=== PATIENT | male | born 1940 | race Two or more races ===

== ENCOUNTER 2018-01-10 20:57 | Inpatient (IN) | payer MEDICARE, OTHER ==
[~2018-01-10] VITALS: Ht 172.7 cm; Wt 72.1 kg
[2018-01-10 21:30] VITALS: BP 128/66
[2018-01-10] MEDS ORDERED: DOCU100C36 PO (22:01)
[2018-01-10] MEDS ORDERED: TRAZ-144 PO (22:01)
[2018-01-10] MEDS ORDERED: HYDR-3326 PO ×2 (22:01)
[2018-01-10] MEDS ORDERED: AMLO10TA2 PO (22:01)
[2018-01-10] MEDS ORDERED: CITA20TA19 PO (22:01)
[2018-01-10] MEDS ORDERED: ALBU8.5H8 INH (22:01)
[2018-01-10] MEDS ORDERED: AMIO200T2 PO (22:01)
[2018-01-10] MEDS ORDERED: FURO20TA4 PO (22:01)
[2018-01-10] MEDS ORDERED: ALBU2.5V38 NEB (22:01)
[2018-01-10] MEDS ORDERED: DOXA2TAB2 PO (22:01)
[2018-01-10] MEDS ORDERED: HYDR-4076 PO (22:01)
[2018-01-10] MEDS ORDERED: ASPI-1169 PO (22:01)
[2018-01-10] MEDS ORDERED: POLY17PO4 PO (22:01)
[2018-01-10] MEDS ORDERED: ONDA4TAB5 PO (22:01)
[2018-01-10] MEDS ORDERED: TIOT18CA3 INH (22:01)
[2018-01-10] MEDS ORDERED: TAMS0.4C34 PO (22:01)
[2018-01-10] MEDS ORDERED: METO50TA16 PO (22:01)
[2018-01-10] MEDS ORDERED: ZOLPIDEM 5 MG TABLET PO PRN (22:15)
[2018-01-10] MEDS ORDERED: ONDANSETRON 4 MG/2 ML VIAL IV PRN (22:15)
[2018-01-10] MEDS ORDERED: hydrALAZINE HCL 25 MG TABLET PO SCH (22:30)
[2018-01-10] MEDS ORDERED: ALBUTEROL SULFATE 2.5 MG/3 ML NEBU NEB PRN (22:30)
[2018-01-10] MEDS ORDERED: IPRATROPIUM BROMIDE 0.5 MG/2.5 ML NEBU NEB PRN (22:30)
[2018-01-10] MEDS ORDERED: ALBUTEROL SULFATE 8 GM HFA.AER.AD INH PRN (22:30)
[2018-01-10] MEDS: PIPERACILLIN SODIUM/TAZOBACTAM 4.5 G in IV DEXTROSE 5% 50 ML IV SCH (22:55)
[2018-01-10] MEDS: IV 1/2NS 1000 ML 1,000 ML IV PRN (22:56)
[2018-01-11] VITALS (7 sets, daily range): BP systolic 132–177; BP diastolic 56–84
[2018-01-11 00:22] LABS: CARBON DIOXIDE 26 mmol/L (21-32); CHLORIDE 102 mmol/L (98-107); CREATININE 2.4 mg/dL (0.6-1.3); GLUCOSE 120 mg/dL (74-106); UREA NITROGEN, BLOOD 22 mg/dL (7-18)
[2018-01-11] MEDS: MORPHINE SULFATE 4 MG/1 ML DISP.SYRIN IV PRN (02:15)
[2018-01-11] MEDS: PIPERACILLIN SODIUM/TAZOBACTAM 4.5 G in IV DEXTROSE 5% 50 ML IV SCH (05:58)
[2018-01-11 06:06] LABS: BASOPHILS # (AUTO) 0.2 K/uL (0.0-8.0); BASOPHILS % (AUTO) 0.8 % (0.0-2.0); EOSINOPHILS # (AUTO) 0.4 K/uL (0.0-0.7); EOSINOPHILS % (AUTO) 2.2 % (0.0-7.0); HEMATOCRIT 37.3 % (36.7-47.1); HEMOGLOBIN 12.1 g/dL (12.5-16.3); LYMPHOCYTES % (AUTO) 10.3 % (20.5-51.5); MEAN CORPUSCULAR HEMOGLOBIN 25.4 uug (23.8-33.4); MEAN CORPUSCULAR HGB CONC 32 g/dL (32.5-36.3); MEAN CORPUSCULAR VOLUME 78.4 fL (73.0-96.2); MONOCYTES % (AUTO) 10.2 % (0.0-11.0); NEUTROPHILS # (AUTO) 15.3 K/uL (1.8-8.9); NEUTROPHILS % (AUTO) 76.5 % (38.5-71.5); PLATELET COUNT (AUTO) 324 K/uL (152-348); RED BLOOD CELL COUNT(AUTO) 4.76 MIL/uL (4.06-5.63); WHITE BLOOD COUNT (AUTO) 19.9 K/uL (3.6-10.2)
[2018-01-11 06:40] LABS: ALANINE AMINOTRANSFERASE 46 U/L (16-63); ALKALINE PHOSPHATASE 314 U/L (50-136); ASPARTATE AMINOTRANSFERASE 32 U/L (15-37); BILIRUBIN,TOTAL 0.4 mg/dL (0.2-1.0); CARBON DIOXIDE 26 mmol/L (21-32); CHLORIDE 101 mmol/L (98-107); CHOLESTEROL 134 mg/dL (<200); CREATININE 2.4 mg/dL (0.6-1.3); GLUCOSE 111 mg/dL (74-106); HDL CHOLESTEROL 37 mg/dL (40-60); MAGNESIUM 1.8 mg/dL (1.8-2.4); PHOSPHOROUS 4.2 mg/dL (2.5-4.9); POTASSIUM 3.7 mmol/L (3.5-5.1); TOTAL PROTEIN, SERUM 6.1 g/dL (6.4-8.2); TRIGLYCERIDES 110 MG/DL (30-150); UREA NITROGEN, BLOOD 22 mg/dL (7-18)
[2018-01-11] MEDS ORDERED: hydrALAZINE HCL 25 MG TABLET PO PRN (07:15)
[2018-01-11] MEDS ORDERED: ZOLPIDEM 5 MG TABLET PO PRN (07:15)
[2018-01-11] MEDS ORDERED: ONDANSETRON 4 MG/2 ML VIAL IV PRN (07:15)
[2018-01-11] MEDS ORDERED: LIDOCAINE HCL 1% 20 ML VIAL IJ ONE (08:15)
[2018-01-11] MEDS: DOCUSATE SODIUM 100 MG CAPSULE PO SCH ×3 (09:00→16:28)
[2018-01-11] MEDS ORDERED: CITALOPRAM 20 MG TABLET PO SCH ×2 (09:00)
[2018-01-11] MEDS: ASPIRIN 81 MG TAB.CHEW PO SCH ×2 (09:00→16:00)
[2018-01-11 09:59] LABS: CARBON DIOXIDE 26 mmol/L (21-32); CHLORIDE 102 mmol/L (98-107); CREATININE 2.4 mg/dL (0.6-1.3); GLUCOSE 112 mg/dL (74-106); POTASSIUM 3.9 mmol/L (3.5-5.1); UREA NITROGEN, BLOOD 24 mg/dL (7-18)
[2018-01-11] MEDS: AMLODIPINE 10 MG TABLET PO SCH ×2 (11:00→11:14)
[2018-01-11] MEDS: METOPROLOL TARTRATE 50 MG TABLET PO SCH ×3 (11:00→19:44)
[2018-01-11] MEDS ORDERED: DEXTROSE 50% 50 ML DISP.SYRIN IV PRN (11:00)
[2018-01-11] MEDS: AMIODARONE HCL 200 MG TABLET PO SCH ×2 (11:00→11:14)
[2018-01-11] MEDS: BLOOD SUGAR DIAGNOSTIC 1 EACH STRIP VI SCH ×3 (12:00→22:06)
[2018-01-11] MEDS: PIPERACILLIN/TAZOBACTAM/D5W 2.25 G in PREMIXED 1 EACH IV SCH ×3 (12:00→23:50)
[2018-01-11] MEDS: IV 1/2NS 1000 ML 1,000 ML IV PRN (12:04)
[2018-01-11 12:18] LABS: THYROID STIMULATING HORMONE 10.099 mIU/mL (0.358-3.740)
[2018-01-11] MEDS: INSULIN REGULAR, HUMAN 300 UNIT/3 ML VIAL SQ PRN (16:45)
[2018-01-11] MEDS: Z GUARD REMEDY PASTE 57 GM TUBE TOP PRN (16:45)
[2018-01-11] MEDS: ACETAMINOPHEN 325 MG TABLET PO PRN (19:44)
[2018-01-11] MEDS: DOXAZOSIN 2 MG TABLET PO SCH (19:45)
[2018-01-11] MEDS: TAMSULOSIN HCL 0.4 MG CAP.SR.24H PO SCH (19:45)
[2018-01-11] MEDS ORDERED: TRAZODONE 50 MG TABLET PO SCH ×2 (21:00)
[2018-01-11] MEDS: IPRATROPIUM BROMIDE 0.5 MG/2.5 ML NEBU NEB PRN (22:19)
[2018-01-11] MEDS: ALBUTEROL SULFATE 2.5 MG/3 ML NEBU NEB PRN (22:20)
[2018-01-12] MEDS: IV 1/2NS 1000 ML 1,000 ML IV PRN ×2 (02:08→19:48)
[2018-01-12 04:06] VITALS: BP 96/66
[2018-01-12] MEDS: MORPHINE SULFATE 4 MG/1 ML DISP.SYRIN IV PRN (04:38)
[2018-01-12] MEDS: LEVOTHYROXINE SODIUM 25 MCG TABLET PO SCH (04:39)
[2018-01-12] MEDS: PIPERACILLIN/TAZOBACTAM/D5W 2.25 G in PREMIXED 1 EACH IV SCH ×3 (05:11→18:13)
[2018-01-12] MEDS: BLOOD SUGAR DIAGNOSTIC 1 EACH STRIP VI SCH ×4 (06:02→20:29)
[2018-01-12] MEDS ORDERED: IOHEXOL 300MG/ML 50 ML VIAL ONE (06:23)
[2018-01-12 07:01] LABS: BASOPHILS # (AUTO) 0.1 K/uL (0.0-8.0); BASOPHILS % (AUTO) 0.7 % (0.0-2.0); EOSINOPHILS # (AUTO) 0.6 K/uL (0.0-0.7); HEMOGLOBIN 11.4 g/dL (12.5-16.3); LYMPHOCYTES # (AUTO) 1.9 K/uL (20.0-40.0); LYMPHOCYTES % (AUTO) 12.1 % (20.5-51.5); MEAN CORPUSCULAR HEMOGLOBIN 25.6 uug (23.8-33.4); MEAN CORPUSCULAR HGB CONC 33 g/dL (32.5-36.3); MEAN CORPUSCULAR VOLUME 78.4 fL (73.0-96.2); MONOCYTES # (AUTO) 1.5 K/uL (2.0-10.0); MONOCYTES % (AUTO) 9.2 % (0.0-11.0); NEUTROPHILS # (AUTO) 11.6 K/uL (1.8-8.9); PLATELET COUNT (AUTO) 286 K/uL (152-348); RED BLOOD CELL COUNT(AUTO) 4.46 MIL/uL (4.06-5.63); WHITE BLOOD COUNT (AUTO) 15.7 K/uL (3.6-10.2)
[2018-01-12] MEDS ORDERED: FENTANYL CITRATE 100 MCG/2 ML AMPUL ONE (07:02)
[2018-01-12] MEDS ORDERED: ETOMIDATE 20 MG/10 ML VIAL MC ONE (07:38)
[2018-01-12] MEDS ORDERED: PROPOFOL 200 MG/20 ML BOTTLE IV ONE (07:38)
[2018-01-12] MEDS ORDERED: LIDOCAINE HCL 1% 20 ML VIAL MC ONE (07:38)
[2018-01-12] MEDS ORDERED: ONDANSETRON 4 MG/2 ML VIAL IV ONE (07:38)
[2018-01-12] MEDS ORDERED: ALBUTEROL SULFATE 2.5 MG/3 ML NEBU ONE (08:37)
[2018-01-12] MEDS ORDERED: IPRATROPIUM BROMIDE 0.5 MG/2.5 ML NEBU ONE (08:37)
[2018-01-12] MEDS: ALBUTEROL SULFATE 2.5 MG/3 ML NEBU NEB PRN ×2 (08:40→19:23)
[2018-01-12] MEDS: IPRATROPIUM BROMIDE 0.5 MG/2.5 ML NEBU NEB PRN ×2 (08:40→19:22)
[2018-01-12 08:58] LABS: ALANINE AMINOTRANSFERASE 39 U/L (16-63); ALKALINE PHOSPHATASE 300 U/L (50-136); ASPARTATE AMINOTRANSFERASE 32 U/L (15-37); BILIRUBIN,TOTAL 0.5 mg/dL (0.2-1.0); CARBON DIOXIDE 25 mmol/L (21-32); CHLORIDE 101 mmol/L (98-107); CREATININE 2.5 mg/dL (0.6-1.3); GLUCOSE 103 mg/dL (74-106); MAGNESIUM 1.7 mg/dL (1.8-2.4); PHOSPHOROUS 3.5 mg/dL (2.5-4.9); POTASSIUM 3.9 mmol/L (3.5-5.1); TOTAL PROTEIN, SERUM 5.7 g/dL (6.4-8.2); UREA NITROGEN, BLOOD 23 mg/dL (7-18)
[2018-01-12] MEDS: DOCUSATE SODIUM 100 MG CAPSULE PO SCH ×2 (09:26→17:56)
[2018-01-12] MEDS: ASPIRIN 81 MG TAB.CHEW PO SCH (09:26)
[2018-01-12] MEDS: AMIODARONE HCL 200 MG TABLET PO SCH (09:27)
[2018-01-12] MEDS: AMLODIPINE 10 MG TABLET PO SCH (09:27)
[2018-01-12] MEDS: METOPROLOL TARTRATE 50 MG TABLET PO SCH ×2 (09:28→20:22)
[2018-01-12] MEDS ORDERED: MAGNESIUM SULFATE/D5W 100 ML IV SCH (10:15)
[2018-01-12 11:36] VITALS: BP 120/60
[2018-01-12] MEDS: INSULIN REGULAR, HUMAN 300 UNIT/3 ML VIAL SQ PRN ×2 (12:04→20:33)
[2018-01-12 15:42] VITALS: BP 110/58
[2018-01-12 20:00] VITALS: BP 153/70
[2018-01-12] MEDS: ACETAMINOPHEN 325 MG TABLET PO PRN (20:21)
[2018-01-12] MEDS: DOXAZOSIN 2 MG TABLET PO SCH (20:22)
[2018-01-12] MEDS: TAMSULOSIN HCL 0.4 MG CAP.SR.24H PO SCH (20:22)
[2018-01-12] MEDS: Z GUARD REMEDY PASTE 57 GM TUBE TOP PRN (20:22)
[2018-01-13] MEDS: PIPERACILLIN/TAZOBACTAM/D5W 2.25 G in PREMIXED 1 EACH IV SCH ×5 (00:20→23:55)
[2018-01-13 05:03] VITALS: BP 117/69
[2018-01-13] MEDS: LEVOTHYROXINE SODIUM 25 MCG TABLET PO SCH (05:10)
[2018-01-13] MEDS: BLOOD SUGAR DIAGNOSTIC 1 EACH STRIP VI SCH ×4 (05:29→20:42)
[2018-01-13] MEDS: ALBUTEROL SULFATE 2.5 MG/3 ML NEBU NEB PRN ×2 (07:41→14:04)
[2018-01-13] MEDS: IPRATROPIUM BROMIDE 0.5 MG/2.5 ML NEBU NEB PRN ×2 (07:41→14:04)
[2018-01-13 10:14] VITALS: BP 113/68
[2018-01-13] MEDS: AMLODIPINE 10 MG TABLET PO SCH (10:18)
[2018-01-13] MEDS: DOCUSATE SODIUM 100 MG CAPSULE PO SCH ×2 (10:19→17:11)
[2018-01-13] MEDS: METOPROLOL TARTRATE 50 MG TABLET PO SCH ×2 (10:19→20:36)
[2018-01-13] MEDS: AMIODARONE HCL 200 MG TABLET PO SCH (10:19)
[2018-01-13] MEDS: ASPIRIN 81 MG TAB.CHEW PO SCH (10:19)
[2018-01-13] MEDS: IV 1/2NS 1000 ML 1,000 ML IV PRN ×2 (10:23→23:57)
[2018-01-13 11:17] VITALS: BP 127/59
[2018-01-13] MEDS: INSULIN REGULAR, HUMAN 300 UNIT/3 ML VIAL SQ PRN (12:04)
[2018-01-13 15:10] VITALS: BP 115/49
[2018-01-13 20:04] VITALS: BP 129/58
[2018-01-13] MEDS: DOXAZOSIN 2 MG TABLET PO SCH (20:36)
[2018-01-13] MEDS: TAMSULOSIN HCL 0.4 MG CAP.SR.24H PO SCH (20:38)
[2018-01-14] MEDS: IPRATROPIUM BROMIDE 0.5 MG/2.5 ML NEBU NEB SCH ×7 (00:03→23:13)
[2018-01-14] MEDS: ALBUTEROL SULFATE 2.5 MG/3 ML NEBU NEB SCH ×7 (00:03→23:13)
[2018-01-14 04:00] VITALS: BP 125/57
[2018-01-14] MEDS: PIPERACILLIN/TAZOBACTAM/D5W 2.25 G in PREMIXED 1 EACH IV SCH (05:19)
[2018-01-14 06:36] LABS: BASOPHILS # (AUTO) 0.1 K/uL (0.0-8.0); BASOPHILS % (AUTO) 0.5 % (0.0-2.0); EOSINOPHILS # (AUTO) 0.3 K/uL (0.0-0.7); EOSINOPHILS % (AUTO) 2.5 % (0.0-7.0); HEMATOCRIT 35.4 % (36.7-47.1); HEMOGLOBIN 11.7 g/dL (12.5-16.3); LYMPHOCYTES # (AUTO) 1.5 K/uL (20.0-40.0); LYMPHOCYTES % (AUTO) 11.1 % (20.5-51.5); MEAN CORPUSCULAR HEMOGLOBIN 25.7 uug (23.8-33.4); MEAN CORPUSCULAR HGB CONC 33 g/dL (32.5-36.3); MEAN CORPUSCULAR VOLUME 78.1 fL (73.0-96.2); MONOCYTES # (AUTO) 1.3 K/uL (2.0-10.0); MONOCYTES % (AUTO) 9.5 % (0.0-11.0); NEUTROPHILS # (AUTO) 10.5 K/uL (1.8-8.9); NEUTROPHILS % (AUTO) 76.4 % (38.5-71.5); PLATELET COUNT (AUTO) 314 K/uL (152-348); RED BLOOD CELL COUNT(AUTO) 4.53 MIL/uL (4.06-5.63); WHITE BLOOD COUNT (AUTO) 13.7 K/uL (3.6-10.2)
[2018-01-14] MEDS: LEVOTHYROXINE SODIUM 25 MCG TABLET PO SCH (06:36)
[2018-01-14] MEDS: BLOOD SUGAR DIAGNOSTIC 1 EACH STRIP VI SCH ×4 (06:39→21:11)
[2018-01-14 06:51] LABS: ALANINE AMINOTRANSFERASE 62 U/L (16-63); ALKALINE PHOSPHATASE 459 U/L (50-136); ASPARTATE AMINOTRANSFERASE 56 U/L (15-37); BILIRUBIN,TOTAL 0.5 mg/dL (0.2-1.0); CARBON DIOXIDE 27 mmol/L (21-32); CHLORIDE 101 mmol/L (98-107); CREATININE 1.5 mg/dL (0.6-1.3); GLUCOSE 113 mg/dL (74-106); MAGNESIUM 1.6 mg/dL (1.8-2.4); PHOSPHOROUS 3.1 mg/dL (2.5-4.9); POTASSIUM 3.4 mmol/L (3.5-5.1); TOTAL PROTEIN, SERUM 5.7 g/dL (6.4-8.2); UREA NITROGEN, BLOOD 17 mg/dL (7-18)
[2018-01-14] MEDS: DOCUSATE SODIUM 100 MG CAPSULE PO SCH ×2 (08:33→17:17)
[2018-01-14] MEDS: AMLODIPINE 10 MG TABLET PO SCH (08:33)
[2018-01-14] MEDS: ASPIRIN 81 MG TAB.CHEW PO SCH (08:33)
[2018-01-14] MEDS: METOPROLOL TARTRATE 50 MG TABLET PO SCH ×2 (08:33→21:10)
[2018-01-14] MEDS: AMIODARONE HCL 200 MG TABLET PO SCH (08:33)
[2018-01-14 08:34] VITALS: BP 128/74
[2018-01-14 10:59] VITALS: BP 125/76
[2018-01-14] MEDS: PIPERACILLIN/TAZOBACTAM/D5W 3.375 G in PREMIXED 1 EACH IV SCH ×2 (13:07→21:14)
[2018-01-14] MEDS ORDERED: POTASSIUM CHLORIDE 10 MEQ TAB.PRT.SR PO ONE (14:45)
[2018-01-14] MEDS: IV 1/2NS 1000 ML 1,000 ML IV PRN (14:45)
[2018-01-14 15:08] VITALS: BP 142/62
[2018-01-14] MEDS ORDERED: MAGNESIUM SULFATE/D5W 100 ML IV SCH (15:15)
[2018-01-14] MEDS: INSULIN REGULAR, HUMAN 300 UNIT/3 ML VIAL SQ PRN (17:14)
[2018-01-14 20:00] VITALS: BP 120/57
[2018-01-14] MEDS: TAMSULOSIN HCL 0.4 MG CAP.SR.24H PO SCH (21:09)
[2018-01-14] MEDS: ACETAMINOPHEN 325 MG TABLET PO PRN (21:09)
[2018-01-14] MEDS: DOXAZOSIN 2 MG TABLET PO SCH (21:10)
[2018-01-14] MEDS ORDERED: IV 1/2NS 1000 ML 1,000 ML IV PRN (23:27)
[2018-01-14] MEDS ORDERED: ALBUTEROL SULFATE 2.5 MG/3 ML NEBU NEB PRN (23:30)
[2018-01-15] MEDS: MORPHINE SULFATE 4 MG/1 ML DISP.SYRIN IV PRN (02:51)
[2018-01-15 04:34] VITALS: BP 132/78
[2018-01-15] MEDS: PIPERACILLIN/TAZOBACTAM/D5W 3.375 G in PREMIXED 1 EACH IV SCH ×3 (05:38→21:27)
[2018-01-15] MEDS: LEVOTHYROXINE SODIUM 25 MCG TABLET PO SCH (06:14)
[2018-01-15 06:51] LABS: BASOPHILS # (AUTO) 0.1 K/uL (0.0-8.0); EOSINOPHILS # (AUTO) 0.8 K/uL (0.0-0.7); EOSINOPHILS % (AUTO) 6.1 % (0.0-7.0); HEMOGLOBIN 11.9 g/dL (12.5-16.3); LYMPHOCYTES # (AUTO) 1.7 K/uL (20.0-40.0); LYMPHOCYTES % (AUTO) 13.3 % (20.5-51.5); MEAN CORPUSCULAR HEMOGLOBIN 25.7 uug (23.8-33.4); MEAN CORPUSCULAR HGB CONC 33 g/dL (32.5-36.3); MEAN CORPUSCULAR VOLUME 77.8 fL (73.0-96.2); MONOCYTES # (AUTO) 1.2 K/uL (2.0-10.0); MONOCYTES % (AUTO) 9.5 % (0.0-11.0); NEUTROPHILS % (AUTO) 70.1 % (38.5-71.5); PLATELET COUNT (AUTO) 346 K/uL (152-348); RED BLOOD CELL COUNT(AUTO) 4.62 MIL/uL (4.06-5.63); WHITE BLOOD COUNT (AUTO) 12.8 K/uL (3.6-10.2)
[2018-01-15 07:03] LABS: ALANINE AMINOTRANSFERASE 66 U/L (16-63); ALKALINE PHOSPHATASE 478 U/L (50-136); ASPARTATE AMINOTRANSFERASE 64 U/L (15-37); BILIRUBIN,TOTAL 0.6 mg/dL (0.2-1.0); CARBON DIOXIDE 28 mmol/L (21-32); CHLORIDE 102 mmol/L (98-107); CREATININE 1.2 mg/dL (0.6-1.3); GLUCOSE 97 mg/dL (74-106); MAGNESIUM 1.7 mg/dL (1.8-2.4); POTASSIUM 3.5 mmol/L (3.5-5.1); TOTAL PROTEIN, SERUM 5.7 g/dL (6.4-8.2); UREA NITROGEN, BLOOD 15 mg/dL (7-18)
[2018-01-15] MEDS: ASPIRIN 81 MG TAB.CHEW PO SCH (08:28)
[2018-01-15] MEDS: DOCUSATE SODIUM 100 MG CAPSULE PO SCH ×2 (08:28→17:17)
[2018-01-15] MEDS: AMIODARONE HCL 200 MG TABLET PO SCH (08:29)
[2018-01-15] MEDS: METOPROLOL TARTRATE 50 MG TABLET PO SCH ×2 (08:29→20:24)
[2018-01-15] MEDS: AMLODIPINE 10 MG TABLET PO SCH (08:29)
[2018-01-15] MEDS ORDERED: MAGNESIUM SULFATE/D5W 100 ML IV SCH (10:45)
[2018-01-15] MEDS ORDERED: POTASSIUM CHLORIDE 20 MEQ TAB.PRT.SR PO ONE (10:45)
[2018-01-15 11:06] VITALS: BP 137/77
[2018-01-15] MEDS: PROTEIN SUPPLEMENT (PROSTAT) 30 ML LIQUID PO SCH ×2 (12:30→17:20)
[2018-01-15 13:25] LABS: *BILIRUBIN,URIN NEGATIVE (NEGATIVE); *BLOOD, URINE 3+ (NEGATIVE); *CLARITY,URINE SLIGHTLY CLOUDY (CLEAR); *KETONES,URINE NEGATIVE (NEGATIVE); *PROTEIN,URINE 2+ (NEGATIVE); LEUKOCYTE ESTERASE ,URINE TRACE (NEGATIVE); NITRITE, URINE NEGATIVE (NEGATIVE); UGLUCOSE NEGATIVE (NEGATIVE)
[2018-01-15 13:26] LABS: *COLOR,URINE LIGHT PINK (YELLOW)
[2018-01-15 13:32] LABS: BACTERIA,URINE NONE SEEN /HPF (NONE SEEN); RBC,URINE 80-100 /HPF (0-3); SQUAMOUS EPITHELIAL CELL,UR FEW /HPF (NONE SEEN)
[2018-01-15] MEDS: IPRATROPIUM BROMIDE 0.5 MG/2.5 ML NEBU NEB PRN ×2 (14:47→20:59)
[2018-01-15] MEDS: ALBUTEROL SULFATE 2.5 MG/3 ML NEBU NEB PRN ×2 (14:48→20:58)
[2018-01-15 14:56] VITALS: BP 136/64
[2018-01-15] MEDS ORDERED: GUAIFENESIN/DEXTROMETHORPHAN 5 ML UDC PO PRN (18:00)
[2018-01-15] MEDS ORDERED: FUROSEMIDE 40 MG/4 ML VIAL IV ONE (18:00)
[2018-01-15 20:00] VITALS: BP 129/80
[2018-01-15] MEDS: TAMSULOSIN HCL 0.4 MG CAP.SR.24H PO SCH (20:24)
[2018-01-15] MEDS: DOXAZOSIN 2 MG TABLET PO SCH (20:24)
[2018-01-16] MEDS: IPRATROPIUM BROMIDE 0.5 MG/2.5 ML NEBU NEB PRN ×3 (01:33→15:05)
[2018-01-16] MEDS: ALBUTEROL SULFATE 2.5 MG/3 ML NEBU NEB PRN ×3 (01:33→15:05)
[2018-01-16 05:18] VITALS: BP 114/67
[2018-01-16] MEDS: PIPERACILLIN/TAZOBACTAM/D5W 3.375 G in PREMIXED 1 EACH IV SCH ×2 (05:19→14:28)
[2018-01-16] MEDS: LEVOTHYROXINE SODIUM 25 MCG TABLET PO SCH (06:17)
[2018-01-16 06:40] LABS: BASOPHILS # (AUTO) 0.2 K/uL (0.0-8.0); BASOPHILS % (AUTO) 1.1 % (0.0-2.0); EOSINOPHILS # (AUTO) 0.5 K/uL (0.0-0.7); EOSINOPHILS % (AUTO) 3.9 % (0.0-7.0); HEMATOCRIT 37.1 % (36.7-47.1); HEMOGLOBIN 12.1 g/dL (12.5-16.3); LYMPHOCYTES # (AUTO) 1.6 K/uL (20.0-40.0); LYMPHOCYTES % (AUTO) 11.6 % (20.5-51.5); MEAN CORPUSCULAR HEMOGLOBIN 25.7 uug (23.8-33.4); MEAN CORPUSCULAR HGB CONC 33 g/dL (32.5-36.3); MEAN CORPUSCULAR VOLUME 78.7 fL (73.0-96.2); MONOCYTES # (AUTO) 1.2 K/uL (2.0-10.0); MONOCYTES % (AUTO) 8.9 % (0.0-11.0); NEUTROPHILS # (AUTO) 10.3 K/uL (1.8-8.9); NEUTROPHILS % (AUTO) 74.5 % (38.5-71.5); PLATELET COUNT (AUTO) 366 K/uL (152-348); RED BLOOD CELL COUNT(AUTO) 4.72 MIL/uL (4.06-5.63); WHITE BLOOD COUNT (AUTO) 13.9 K/uL (3.6-10.2)
[2018-01-16 06:55] LABS: ALANINE AMINOTRANSFERASE 70 U/L (16-63); ALKALINE PHOSPHATASE 515 U/L (50-136); ASPARTATE AMINOTRANSFERASE 61 U/L (15-37); BILIRUBIN,TOTAL 0.6 mg/dL (0.2-1.0); CARBON DIOXIDE 29 mmol/L (21-32); CHLORIDE 101 mmol/L (98-107); CREATININE 1.3 mg/dL (0.6-1.3); GLUCOSE 99 mg/dL (74-106); MAGNESIUM 1.6 mg/dL (1.8-2.4); POTASSIUM 3.5 mmol/L (3.5-5.1); TOTAL PROTEIN, SERUM 5.9 g/dL (6.4-8.2); UREA NITROGEN, BLOOD 16 mg/dL (7-18)
[2018-01-16] MEDS: DOCUSATE SODIUM 100 MG CAPSULE PO SCH ×2 (08:30→17:06)
[2018-01-16] MEDS: ASPIRIN 81 MG TAB.CHEW PO SCH (08:30)
[2018-01-16] MEDS: METOPROLOL TARTRATE 50 MG TABLET PO SCH ×2 (08:31→21:06)
[2018-01-16] MEDS: AMLODIPINE 10 MG TABLET PO SCH (08:31)
[2018-01-16] MEDS: AMIODARONE HCL 200 MG TABLET PO SCH (08:31)
[2018-01-16] MEDS: PROTEIN SUPPLEMENT (PROSTAT) 30 ML LIQUID PO SCH ×3 (08:32→17:06)
[2018-01-16] MEDS: MORPHINE SULFATE 4 MG/1 ML DISP.SYRIN IV PRN ×2 (08:39→21:11)
[2018-01-16 11:33] VITALS: BP 112/52
[2018-01-16] MEDS ORDERED: FUROSEMIDE 20 MG/2 ML VIAL IV ONE (14:00)
[2018-01-16] MEDS: MAGNESIUM SULFATE/D5W 100 ML IV SCH ×2 (14:30→15:26)
[2018-01-16 15:31] VITALS: BP 124/52
[2018-01-16] MEDS ORDERED: HYDR-3326 PO (18:03)
[2018-01-16] MEDS ORDERED: ALBU2.5V7 NEB (18:03)
[2018-01-16] MEDS ORDERED: CITA10TA17 PO (18:03)
[2018-01-16] MEDS ORDERED: TAMS-3 PO (18:03)
[2018-01-16] MEDS ORDERED: METO50TA16 PO (18:03)
[2018-01-16] MEDS ORDERED: GUAI5SYR PO (18:03)
[2018-01-16] MEDS ORDERED: IPRA0.2S6 NEB (18:03)
[2018-01-16] MEDS ORDERED: ACET325T53 PO (18:03)
[2018-01-16] MEDS ORDERED: MULT1TAB73 PO (18:03)
[2018-01-16] MEDS ORDERED: PROT30LI PO (18:04)
[2018-01-16] MEDS ORDERED: PIPE3.379 IV (18:04)
[2018-01-16] MEDS ORDERED: FLUT1BLS IH (18:04)
[2018-01-16] MEDS ORDERED: ACID1TAB4 PO (18:04)
[2018-01-16 19:00] VITALS: BP 129/60
[2018-01-16 20:28] VITALS: BP 141/54
[2018-01-16] MEDS: TAMSULOSIN HCL 0.4 MG CAP.SR.24H PO SCH (21:06)
[2018-01-16] MEDS: DOXAZOSIN 2 MG TABLET PO SCH (21:06)
[2018-01-16 21:14] VITALS: BP 129/60
== END 2018-01-16 21:20 | DRG 871 ==
LOC: MED 21:07
PROVIDERS: ADMIT Internal Medicine; ATTEND Internal Medicine
PROC: 0W9B3ZX Drainage of Left Pleural Cavity, Percutaneous Approach, Diagnostic (ICD-10-PCS; 2018-01-11)
PROC: 0T778DZ Dilation of Left Ureter with Intraluminal Device, Via Natural or Artificial Opening Endoscopic (ICD-10-PCS; principal; 2018-01-12 06:53)
DX: A41.9 Sepsis, unspecified organism (principal); N17.0 Acute kidney failure with tubular necrosis; E43 Unspecified severe protein-calorie malnutrition; I50.43 Acute on chronic combined systolic (congestive) and diastolic (congestive) heart failure; G92 Toxic encephalopathy; D68.59 Other primary thrombophilia; E11.22 Type 2 diabetes mellitus with diabetic chronic kidney disease; J18.9 Pneumonia, unspecified organism; J91.8 Pleural effusion in other conditions classified elsewhere; N13.2 Hydronephrosis with renal and ureteral calculous obstruction; I13.0 Hypertensive heart and chronic kidney disease with heart failure and stage 1 through stage 4 chronic kidney disease, or unspecified chronic kidney disease; N39.0 Urinary tract infection, site not specified; J44.0 Chronic obstructive pulmonary disease with (acute) lower respiratory infection; I71.2 Thoracic aortic aneurysm, without rupture; R65.20 Severe sepsis without septic shock; I25.10 Atherosclerotic heart disease of native coronary artery without angina pectoris; Z95.1 Presence of aortocoronary bypass graft; Z68.24 Body mass index [BMI] 24.0-24.9, adult; E83.42 Hypomagnesemia; N18.9 Chronic kidney disease, unspecified; I71.4 Abdominal aortic aneurysm, without rupture; E78.5 Hyperlipidemia, unspecified; F17.210 Nicotine dependence, cigarettes, uncomplicated; F03.90 Unspecified dementia, unspecified severity, without behavioral disturbance, psychotic disturbance, mood disturbance, and anxiety; Z95.5 Presence of coronary angioplasty implant and graft; Z79.51 Long term (current) use of inhaled steroids; Z79.82 Long term (current) use of aspirin; Z79.899 Other long term (current) drug therapy; I48.91 Unspecified atrial fibrillation
CPT/HCPCS: 32555; 36415; 70030-TC; 71045; 76000; 83605; 83690; 83735; 84100; 84153; 84443; 85025; 85730; 87040; 87070; 87086; 87205; 93005; 93307; 94640; 94664; 97116; 97530; C1758; C2625; J1815; J1940; J2270; J2405; J2543; J3010; J3475; J3490; J3535; J3590; J7060; Q9967

== ENCOUNTER 2018-01-16 21:57 | Inpatient (IN) | payer MEDICARE, OTHER ==
[~2018-01-16] VITALS: Ht 170.2 cm; Wt 78.5 kg
[~2018-01-16 21:57] MED LIST: ACET325T53 PO; ACID1TAB4 PO; ALBU2.5V38 NEB; ALBU2.5V7 NEB; ALBU8.5H8 INH; AMIO200T2 PO; AMLO10TA2 PO; ASPI-1169 PO; CITA10TA17 PO; CITA20TA19 PO; DOCU100C36 PO; DOXA2TAB2 PO; FLUT1BLS IH; FURO20TA4 PO; GUAI5SYR PO; HYDR-3326 PO; HYDR-4076 PO; IPRA0.2S6 NEB; METO50TA16 PO; MULT1TAB73 PO; ONDA4TAB5 PO; PIPE3.379 IV; POLY17PO4 PO; PROT30LI PO; TAMS-3 PO; TAMS0.4C34 PO; TIOT18CA3 INH; TRAZ-144 PO
[2018-01-16 22:02] VITALS: BP 109/65
[2018-01-16] MEDS ORDERED: GUAIFENESIN/DEXTROMETHORPHAN 5 ML UDC PO PRN (22:15)
[2018-01-16] MEDS ORDERED: ACETAMINOPHEN 325 MG TABLET PO PRN (22:15)
[2018-01-16] MEDS ORDERED: Z GUARD REMEDY PASTE 57 GM TUBE TOP PRN (22:15)
[2018-01-17 05:03] VITALS: BP 118/73
[2018-01-17] MEDS ORDERED: PIPERACILLIN/TAZO/D5W 3.375 GM FROZEN IV SCH (06:00)
[2018-01-17] MEDS: PIPERACILLIN SODIUM IV SCH ×3 (06:18→21:00)
[2018-01-17] MEDS: TAZOBACTAM IV SCH ×3 (06:18→21:00)
[2018-01-17] MEDS: DEXTROSE 5% IV SCH ×3 (06:18→21:00)
[2018-01-17 08:26] VITALS: BP 100/64
[2018-01-17] MEDS ORDERED: DOCUSATE SODIUM 100 MG CAPSULE PO SCH (09:00)
[2018-01-17] MEDS ORDERED: ACIDOPHILUS/BULGARICUS CHEW TAB PO SCH (09:00)
[2018-01-17] MEDS: FUROSEMIDE 20 MG TABLET PO SCH (09:33)
[2018-01-17] MEDS: FLUTICASONE/VILANTEROL 1 EACH BLST.W.DEV IH SCH (09:33)
[2018-01-17] MEDS: DOCUSATE SODIUM 100 MG CAPSULE PO SCH ×2 (09:33→20:59)
[2018-01-17] MEDS: ASPIRIN 81 MG TAB.CHEW PO SCH (09:33)
[2018-01-17] MEDS: AMIODARONE HCL 200 MG TABLET PO SCH (09:37)
[2018-01-17] MEDS: ACIDOPHILUS/BULGARICUS CHEW TAB PO SCH ×2 (09:39→20:59)
[2018-01-17] MEDS: MULTIVITAMINS,THERAPEUTIC TABLET PO SCH (09:39)
[2018-01-17] MEDS: PROTEIN SUPPLEMENT (PROSTAT) 30 ML LIQUID PO SCH ×3 (09:39→17:30)
[2018-01-17] MEDS: MIRALAX 17 GM POWD.PACK PO SCH (09:39)
[2018-01-17] MEDS: CITALOPRAM 10 MG TABLET PO SCH (09:41)
[2018-01-17] MEDS: METOPROLOL TARTRATE 50 MG TABLET PO SCH ×2 (09:42→20:59)
[2018-01-17] MEDS: AMLODIPINE 10 MG TABLET PO SCH (09:42)
[2018-01-17] MEDS: ALBUTEROL SULFATE 2.5 MG/3 ML NEBU NEB PRN ×4 (10:20→21:22)
[2018-01-17] MEDS: IPRATROPIUM BROMIDE 0.5 MG/2.5 ML NEBU NEB PRN ×4 (10:20→21:22)
[2018-01-17] MEDS ORDERED: Medication Not On Formulary EA (Protein Supplement (Prosource) 30 ML) PO SCH (12:00)
[2018-01-17 19:54] VITALS: BP 112/70
[2018-01-17] MEDS: DOXAZOSIN 2 MG TABLET PO SCH (20:59)
[2018-01-17] MEDS: TAMSULOSIN HCL 0.4 MG CAP.SR.24H PO SCH (20:59)
[2018-01-17] MEDS: TRAZODONE 50 MG TABLET PO SCH (21:01)
[2018-01-17] MEDS ORDERED: DEXTROSE 50% 50 ML DISP.SYRIN IV PRN (21:30)
[2018-01-17] MEDS: HYDROCODONE/APAP 5-325MG TABLET PO PRN (21:53)
[2018-01-18] MEDS: TAZOBACTAM IV SCH ×3 (06:29→21:05)
[2018-01-18] MEDS: PIPERACILLIN SODIUM IV SCH ×3 (06:29→21:05)
[2018-01-18] MEDS: DEXTROSE 5% IV SCH ×3 (06:29→21:05)
[2018-01-18] MEDS: BLOOD SUGAR DIAGNOSTIC 1 EACH STRIP VI SCH ×4 (06:33→20:51)
[2018-01-18 07:35] LABS: BASOPHILS # (AUTO) 0.2 K/uL (0.0-8.0); EOSINOPHILS # (AUTO) 1.4 K/uL (0.0-0.7); EOSINOPHILS % (AUTO) 8.4 % (0.0-7.0); HEMOGLOBIN 11.8 g/dL (12.5-16.3); LYMPHOCYTES # (AUTO) 1.6 K/uL (20.0-40.0); LYMPHOCYTES % (AUTO) 9.2 % (20.5-51.5); MEAN CORPUSCULAR HEMOGLOBIN 25.4 uug (23.8-33.4); MEAN CORPUSCULAR HGB CONC 33 g/dL (32.5-36.3); MEAN CORPUSCULAR VOLUME 77.4 fL (73.0-96.2); MONOCYTES # (AUTO) 1.3 K/uL (2.0-10.0); MONOCYTES % (AUTO) 7.3 % (0.0-11.0); NEUTROPHILS # (AUTO) 12.7 K/uL (1.8-8.9); NEUTROPHILS % (AUTO) 74.1 % (38.5-71.5); PLATELET COUNT (AUTO) 358 K/uL (152-348); RED BLOOD CELL COUNT(AUTO) 4.65 MIL/uL (4.06-5.63); WHITE BLOOD COUNT (AUTO) 17.1 K/uL (3.6-10.2)
[2018-01-18 08:01] LABS: ALANINE AMINOTRANSFERASE 69 U/L (16-63); ALKALINE PHOSPHATASE 531 U/L (50-136); ASPARTATE AMINOTRANSFERASE 66 U/L (15-37); BILIRUBIN,TOTAL 0.6 mg/dL (0.2-1.0); CARBON DIOXIDE 28 mmol/L (21-32); CHLORIDE 102 mmol/L (98-107); CREATININE 1.4 mg/dL (0.6-1.3); GLUCOSE 100 mg/dL (74-106); MAGNESIUM 1.6 mg/dL (1.8-2.4); PHOSPHOROUS 3.1 mg/dL (2.5-4.9); POTASSIUM 3.2 mmol/L (3.5-5.1); TOTAL PROTEIN, SERUM 5.7 g/dL (6.4-8.2); UREA NITROGEN, BLOOD 22 mg/dL (7-18)
[2018-01-18] MEDS: MULTIVITAMINS,THERAPEUTIC TABLET PO SCH (08:39)
[2018-01-18] MEDS: ASPIRIN 81 MG TAB.CHEW PO SCH (08:39)
[2018-01-18] MEDS: PROTEIN SUPPLEMENT (PROSTAT) 30 ML LIQUID PO SCH ×3 (08:39→17:20)
[2018-01-18] MEDS: MIRALAX 17 GM POWD.PACK PO SCH (08:39)
[2018-01-18] MEDS: FLUTICASONE/VILANTEROL 1 EACH BLST.W.DEV IH SCH (08:39)
[2018-01-18] MEDS: AMIODARONE HCL 200 MG TABLET PO SCH (08:40)
[2018-01-18] MEDS: FUROSEMIDE 20 MG TABLET PO SCH (08:40)
[2018-01-18 08:41] VITALS: BP 129/60
[2018-01-18] MEDS: AMLODIPINE 10 MG TABLET PO SCH (08:41)
[2018-01-18] MEDS: CITALOPRAM 10 MG TABLET PO SCH (08:41)
[2018-01-18] MEDS: METOPROLOL TARTRATE 50 MG TABLET PO SCH ×2 (08:41→20:41)
[2018-01-18] MEDS: ACIDOPHILUS/BULGARICUS CHEW TAB PO SCH ×2 (08:42→20:41)
[2018-01-18] MEDS: DOCUSATE SODIUM 100 MG CAPSULE PO SCH ×2 (08:42→20:41)
[2018-01-18] MEDS ORDERED: POTASSIUM CHLORIDE 20 MEQ TAB.PRT.SR PO ONE (11:15)
[2018-01-18] MEDS ORDERED: MAGNESIUM OXIDE 400 MG TABLET PO ONE (11:15)
[2018-01-18] MEDS: ALBUTEROL SULFATE 2.5 MG/3 ML NEBU NEB PRN (15:47)
[2018-01-18] MEDS ORDERED: methylPREDNISolone 1 PACK TAB.DS.PK [4MG TAB] PO ONE (16:00)
[2018-01-18] MEDS ORDERED: methylPREDNISolone 4 MG TABLET (DAY#1) PO ONE (17:15)
[2018-01-18 17:53] VITALS: BP 117/63
[2018-01-18] MEDS: TRAZODONE 50 MG TABLET PO SCH (20:41)
[2018-01-18] MEDS: TAMSULOSIN HCL 0.4 MG CAP.SR.24H PO SCH (20:41)
[2018-01-18] MEDS: DOXAZOSIN 2 MG TABLET PO SCH (20:42)
[2018-01-18] MEDS: INSULIN REGULAR, HUMAN 300 UNIT/3 ML VIAL SQ PRN (20:53)
[2018-01-18] MEDS ORDERED: methylPREDNISolone 4 MG TABLET (DAY#1, HS) PO ONE (21:00)
[2018-01-18 21:22] VITALS: BP 146/74
[2018-01-19] MEDS: DEXTROSE 5% IV SCH ×3 (05:21→21:30)
[2018-01-19] MEDS: TAZOBACTAM IV SCH ×3 (05:21→21:30)
[2018-01-19] MEDS: PIPERACILLIN SODIUM IV SCH ×3 (05:21→21:30)
[2018-01-19 05:33] VITALS: BP 121/58
[2018-01-19 05:36] VITALS: BP 128/74
[2018-01-19] MEDS: BLOOD SUGAR DIAGNOSTIC 1 EACH STRIP VI SCH ×4 (06:34→21:28)
[2018-01-19] MEDS ORDERED: methylPREDNISolone 4 MG TABLET (DAY#2, ACB) PO ONE (07:30)
[2018-01-19 07:46] LABS: CARBON DIOXIDE 27 mmol/L (21-32); CHLORIDE 103 mmol/L (98-107); CREATININE 1.4 mg/dL (0.6-1.3); GLUCOSE 117 mg/dL (74-106); POTASSIUM 3.6 mmol/L (3.5-5.1); UREA NITROGEN, BLOOD 26 mg/dL (7-18)
[2018-01-19 08:02] LABS: BASOPHILS # (AUTO) 0.1 K/uL (0.0-8.0); BASOPHILS % (AUTO) 0.3 % (0.0-2.0); EOSINOPHILS % (AUTO) 0.2 % (0.0-7.0); LYMPHOCYTES # (AUTO) 1.7 K/uL (20.0-40.0); LYMPHOCYTES % (AUTO) 10.3 % (20.5-51.5); MEAN CORPUSCULAR HEMOGLOBIN 25.7 uug (23.8-33.4); MEAN CORPUSCULAR HGB CONC 32 g/dL (32.5-36.3); MEAN CORPUSCULAR VOLUME 79.3 fL (73.0-96.2); MONOCYTES % (AUTO) 6.3 % (0.0-11.0); NEUTROPHILS # (AUTO) 13.7 K/uL (1.8-8.9); NEUTROPHILS % (AUTO) 82.9 % (38.5-71.5); PLATELET COUNT (AUTO) 362 K/uL (152-348); RED BLOOD CELL COUNT(AUTO) 4.66 MIL/uL (4.06-5.63); WHITE BLOOD COUNT (AUTO) 16.5 K/uL (3.6-10.2)
[2018-01-19] MEDS: PROTEIN SUPPLEMENT (PROSTAT) 30 ML LIQUID PO SCH ×3 (08:26→16:58)
[2018-01-19 08:49] VITALS: BP 146/67
[2018-01-19] MEDS: FUROSEMIDE 20 MG TABLET PO SCH (09:20)
[2018-01-19] MEDS: MULTIVITAMINS,THERAPEUTIC TABLET PO SCH (09:20)
[2018-01-19] MEDS: DOCUSATE SODIUM 100 MG CAPSULE PO SCH ×2 (09:21→21:21)
[2018-01-19] MEDS: ACIDOPHILUS/BULGARICUS CHEW TAB PO SCH ×2 (09:21→21:18)
[2018-01-19] MEDS: CITALOPRAM 10 MG TABLET PO SCH (09:21)
[2018-01-19] MEDS: ASPIRIN 81 MG TAB.CHEW PO SCH (09:21)
[2018-01-19] MEDS: AMLODIPINE 10 MG TABLET PO SCH (09:21)
[2018-01-19] MEDS: METOPROLOL TARTRATE 50 MG TABLET PO SCH ×2 (09:22→21:21)
[2018-01-19] MEDS: AMIODARONE HCL 200 MG TABLET PO SCH (09:23)
[2018-01-19] MEDS: FLUTICASONE/VILANTEROL 1 EACH BLST.W.DEV IH SCH (09:31)
[2018-01-19] MEDS: MIRALAX 17 GM POWD.PACK PO SCH (11:55)
[2018-01-19] MEDS: INSULIN REGULAR, HUMAN 300 UNIT/3 ML VIAL SQ PRN (12:13)
[2018-01-19] MEDS ORDERED: methylPREDNISolone 4 MG TABLET (DAY#2, PC LUNCH) PO ONE (12:30)
[2018-01-19] MEDS: HYDROCODONE/APAP 5-325MG TABLET PO PRN (13:04)
[2018-01-19] MEDS: diphenhydrAMINE 25 MG/10 ML UDC PO PRN (16:58)
[2018-01-19] MEDS ORDERED: methylPREDNISolone 4 MG TABLET (DAY#2, PC DINNER) PO ONE (17:30)
[2018-01-19 20:30] VITALS: BP 136/73
[2018-01-19] MEDS ORDERED: methylPREDNISolone 4 MG TABLET (DAY#2, HS) PO ONE (21:00)
[2018-01-19] MEDS: TRAZODONE 50 MG TABLET PO SCH (21:18)
[2018-01-19] MEDS: TAMSULOSIN HCL 0.4 MG CAP.SR.24H PO SCH (21:19)
[2018-01-19] MEDS: DOXAZOSIN 2 MG TABLET PO SCH (21:20)
[2018-01-20] MEDS: HYDROCODONE/APAP 5-325MG TABLET PO PRN ×2 (01:08→05:34)
[2018-01-20] MEDS: TAZOBACTAM IV SCH (05:40)
[2018-01-20] MEDS: DEXTROSE 5% IV SCH (05:40)
[2018-01-20] MEDS: PIPERACILLIN SODIUM IV SCH (05:40)
[2018-01-20] MEDS: BLOOD SUGAR DIAGNOSTIC 1 EACH STRIP VI SCH ×4 (06:23→20:28)
[2018-01-20 06:30] VITALS: BP 102/65
[2018-01-20] MEDS ORDERED: methylPREDNISolone 4 MG TABLET (DAY#3, ACB) PO ONE (07:30)
[2018-01-20 08:00] VITALS: BP 140/78
[2018-01-20] MEDS: diphenhydrAMINE 25 MG/10 ML UDC PO PRN (08:41)
[2018-01-20] MEDS: ACIDOPHILUS/BULGARICUS CHEW TAB PO SCH ×2 (08:42→20:21)
[2018-01-20] MEDS: ASPIRIN 81 MG TAB.CHEW PO SCH (08:42)
[2018-01-20] MEDS: PROTEIN SUPPLEMENT (PROSTAT) 30 ML LIQUID PO SCH ×3 (08:42→17:17)
[2018-01-20] MEDS: CITALOPRAM 10 MG TABLET PO SCH (08:42)
[2018-01-20] MEDS: MULTIVITAMINS,THERAPEUTIC TABLET PO SCH (08:42)
[2018-01-20] MEDS: MIRALAX 17 GM POWD.PACK PO SCH (08:43)
[2018-01-20] MEDS: DOCUSATE SODIUM 100 MG CAPSULE PO SCH ×2 (08:43→20:21)
[2018-01-20] MEDS: FUROSEMIDE 20 MG TABLET PO SCH (08:43)
[2018-01-20] MEDS: AMIODARONE HCL 200 MG TABLET PO SCH (08:44)
[2018-01-20] MEDS: AMLODIPINE 10 MG TABLET PO SCH (08:44)
[2018-01-20] MEDS: FLUTICASONE/VILANTEROL 1 EACH BLST.W.DEV IH SCH (08:52)
[2018-01-20] MEDS: METOPROLOL TARTRATE 50 MG TABLET PO SCH ×2 (08:53→20:22)
[2018-01-20] MEDS ORDERED: methylPREDNISolone 4 MG TABLET (DAY#3, PC LUNCH) PO ONE (12:30)
[2018-01-20 15:33] VITALS: BP 114/62
[2018-01-20] MEDS ORDERED: methylPREDNISolone 4 MG TABLET (DAY#3, PC DINNER) PO ONE (17:30)
[2018-01-20] MEDS: ALBUTEROL SULFATE 2.5 MG/3 ML NEBU NEB PRN (19:51)
[2018-01-20] MEDS: IPRATROPIUM BROMIDE 0.5 MG/2.5 ML NEBU NEB PRN (19:51)
[2018-01-20] MEDS: TRAZODONE 50 MG TABLET PO SCH (20:21)
[2018-01-20] MEDS: DOXAZOSIN 2 MG TABLET PO SCH (20:22)
[2018-01-20] MEDS: TAMSULOSIN HCL 0.4 MG CAP.SR.24H PO SCH (20:22)
[2018-01-20] MEDS: INSULIN REGULAR, HUMAN 300 UNIT/3 ML VIAL SQ PRN (20:30)
[2018-01-20 20:35] VITALS: BP 130/70
[2018-01-20] MEDS ORDERED: methylPREDNISolone 4 MG TABLET (DAY#3, HS) PO ONE (21:00)
[2018-01-21] MEDS: BLOOD SUGAR DIAGNOSTIC 1 EACH STRIP VI SCH ×4 (06:25→20:44)
[2018-01-21 06:40] VITALS: BP 106/71
[2018-01-21] MEDS ORDERED: methylPREDNISolone 4 MG TABLET (DAY#4, ACB) PO ONE (07:30)
[2018-01-21 08:18] VITALS: BP 127/63
[2018-01-21] MEDS: PROTEIN SUPPLEMENT (PROSTAT) 30 ML LIQUID PO SCH ×3 (08:43→17:02)
[2018-01-21] MEDS: FLUTICASONE/VILANTEROL 1 EACH BLST.W.DEV IH SCH (08:44)
[2018-01-21] MEDS: DOCUSATE SODIUM 100 MG CAPSULE PO SCH ×2 (08:44→20:42)
[2018-01-21] MEDS: ASPIRIN 81 MG TAB.CHEW PO SCH (08:44)
[2018-01-21] MEDS: ACIDOPHILUS/BULGARICUS CHEW TAB PO SCH ×2 (08:44→20:41)
[2018-01-21] MEDS: FUROSEMIDE 20 MG TABLET PO SCH (08:45)
[2018-01-21] MEDS: AMIODARONE HCL 200 MG TABLET PO SCH (08:45)
[2018-01-21] MEDS: CITALOPRAM 10 MG TABLET PO SCH (08:45)
[2018-01-21] MEDS: MULTIVITAMINS,THERAPEUTIC TABLET PO SCH (08:45)
[2018-01-21] MEDS: AMLODIPINE 10 MG TABLET PO SCH (08:46)
[2018-01-21] MEDS: METOPROLOL TARTRATE 50 MG TABLET PO SCH ×2 (08:46→20:42)
[2018-01-21] MEDS: MIRALAX 17 GM POWD.PACK PO SCH (08:46)
[2018-01-21] MEDS ORDERED: methylPREDNISolone 4 MG TABLET (DAY#4, PC LUNCH) PO ONE (12:30)
[2018-01-21] MEDS: IPRATROPIUM BROMIDE 0.5 MG/2.5 ML NEBU NEB PRN (12:49)
[2018-01-21] MEDS: ALBUTEROL SULFATE 2.5 MG/3 ML NEBU NEB PRN (12:49)
[2018-01-21 16:11] VITALS: BP 125/71
[2018-01-21] MEDS ORDERED: SHARK LIVER OIL/PETROLAT OINT 60 GM TUBE RC SCH (17:00)
[2018-01-21] MEDS: INSULIN REGULAR, HUMAN 300 UNIT/3 ML VIAL SQ PRN ×2 (18:14→20:45)
[2018-01-21 19:30] VITALS: BP_SYST 122; BP_SYST 139; BP_DIAS 58; BP_DIAS 62
[2018-01-21] MEDS: TAMSULOSIN HCL 0.4 MG CAP.SR.24H PO SCH (20:41)
[2018-01-21] MEDS: DOXAZOSIN 2 MG TABLET PO SCH (20:41)
[2018-01-21 20:42] VITALS: BP 122/62
[2018-01-21] MEDS: TRAZODONE 50 MG TABLET PO SCH (20:42)
[2018-01-21] MEDS ORDERED: methylPREDNISolone 4 MG TABLET (DAY#4, HS) PO ONE (21:00)
[2018-01-22] MEDS ORDERED: methylPREDNISolone 4 MG TABLET (DAY#5, ACB) PO ONE (07:30)
[2018-01-22] MEDS ORDERED: methylPREDNISolone 4 MG TABLET (DAY#5, HS) PO ONE (21:00)
[2018-01-23] MEDS ORDERED: methylPREDNISolone 4 MG TABLET (DAY#6, ACB) PO ONE (07:30)
== END 2018-01-21 20:55 | disposition short-term general hospital (02) | DRG 193 ==
PROVIDERS: ADMIT Physical Medicine & Rehabilitation Pain Medicine; ATTEND Physical Medicine & Rehabilitation Pain Medicine
DX: J18.9 Pneumonia, unspecified organism (principal); E43 Unspecified severe protein-calorie malnutrition; N17.0 Acute kidney failure with tubular necrosis; G93.41 Metabolic encephalopathy; I50.43 Acute on chronic combined systolic (congestive) and diastolic (congestive) heart failure; D68.59 Other primary thrombophilia; I48.0 Paroxysmal atrial fibrillation; E11.9 Type 2 diabetes mellitus without complications; E83.42 Hypomagnesemia; J44.0 Chronic obstructive pulmonary disease with (acute) lower respiratory infection; J98.11 Atelectasis; I11.0 Hypertensive heart disease with heart failure; I25.10 Atherosclerotic heart disease of native coronary artery without angina pectoris; I77.810 Thoracic aortic ectasia; M19.90 Unspecified osteoarthritis, unspecified site; Z95.5 Presence of coronary angioplasty implant and graft; Z87.891 Personal history of nicotine dependence; R21 Rash and other nonspecific skin eruption; E87.6 Hypokalemia; N40.0 Benign prostatic hyperplasia without lower urinary tract symptoms; Z87.442 Personal history of urinary calculi; Z95.1 Presence of aortocoronary bypass graft; Z79.82 Long term (current) use of aspirin; Z79.899 Other long term (current) drug therapy; G31.84 Mild cognitive impairment of uncertain or unknown etiology; N28.9 Disorder of kidney and ureter, unspecified
CPT/HCPCS: 36415; 71045; 83735; 84100; 85025; 92526; 92610; 94640; 97110; 97116; 97530; 97535; A9150; J1815; J2543; J3590; J7060; J7509; Q0163

== ENCOUNTER 2018-01-21 23:45 | Inpatient (IN) | payer MEDICARE, OTHER ==
[~2018-01-21] VITALS: Ht 172.7 cm; Wt 66.2 kg
[2018-01-21 21:20] VITALS: BP 110/62
--- NOTE | 2018-01-21 21:20 | NUR ---
Received patient from ARU via gurney. Patient appears to be short of breath using accessory muscles to assist in breathing. No c/o pain at this moment. A&O x 3 but forgetful. YEHUDA. Family at bedside. Iranian speaking but able to understand and respond in Polish. TELE Sinus Rhythm at 72 with some PAC and PVC's. Patient is on 02 2L NC. Vital signs taken. Sating at 88%-91%. Admission protocols followed. Belongings list done. Head to toe assessment done, lung sounds fine on all lobes. Noted red patches/rash all over his body. Per ARU RN, d/t reaction to Zosyn. Patient wish to be FULL CODE. Patient is incontinent, on diaper. Safety initiated. Call light within reach. Will closely monitor.
[~2018-01-21 23:45] MED LIST changes: -ALBU2.5V38 NEB; -ALBU8.5H8 INH; -CITA20TA19 PO; -HYDR-4076 PO; -ONDA4TAB5 PO; -TAMS0.4C34 PO; -TIOT18CA3 INH
[2018-01-21 23:48] VITALS: BP 94/52
[2018-01-22] VITALS (19 sets, daily range): BP systolic 102–133; BP diastolic 52–94
[2018-01-22] MEDS ORDERED: ONDANSETRON 4 MG/2 ML VIAL IV PRN
[2018-01-22] MEDS ORDERED: MAGNESIUM HYDROXIDE 30 ML LIQUID UDC PO PRN
[2018-01-22] MEDS ORDERED: DEXTROSE 50% 50 ML DISP.SYRIN IV PRN (00:15)
[2018-01-22] MEDS ORDERED: ALBUTEROL SULFATE 2.5 MG/3 ML NEBU NEB PRN ×2 (00:15→08:00)
[2018-01-22] MEDS ORDERED: IPRATROPIUM BROMIDE 0.5 MG/2.5 ML NEBU NEB PRN (00:15)
[2018-01-22] MEDS ORDERED: ZOLPIDEM 5 MG TABLET PO PRN (00:30)
--- NOTE | 2018-01-22 01:15 | NUR ---
Patient was found out of bed by [employer]ENT[employer] MANAGER and another Nurse. When asked where was he going, he responded "to my room". The patient was confused. Observed difficult time breathing heavily using his accessory muscles. O2 2L was put back on. Contacted RT to provide a breathing treatment. Vital signs was stable. Sating at 91%. Will closely monitor.
--- NOTE | 2018-01-22 02:35 | NUR ---
Patient did not respond to the breathing treatment. RR = 25. However, patient is able to alert and able to follow commands. Able to state name and . PHYSICAL THERAPIST TECHNICIAN Doyle made aware. New orders received. STAT ABG's.
[2018-01-22 02:59] LABS: ABG BASE EXCESS 2.9 mmol/L; ABG HCO3 25.1 mmol/L; ABG PCO2 31.5 mmHg (35.0-45.0); ABG PO2 60.5 mmHg (75.0-100.0); ABG SITE RIGHT BRACHIAL; COHb 1.3 % (0.5-1.5); MetHb 0.1 % (0.0-1.5); O2Hb 90.2 % (94.0-97.0); VENT MODE Nasal Cannula
[2018-01-22] MEDS ORDERED: FUROSEMIDE 40 MG/4 ML VIAL IV ONE ×2 (03:15)
--- NOTE | 2018-01-22 03:23 | NUR ---
Dr. Yulia Varela from ER at bedside evaluating patient. Speaking to YOLIE Kwon, ordered to transfer to CCU.
--- NOTE | 2018-01-22 03:26 | NUR ---
Lasix ordered by YOLIE Kwon. Given IVP. Will closely monitor.
--- NOTE | 2018-01-22 03:39 | NUR ---
Transferred to CCU bed # 2. Report given to Zahraa PINEDA.
[2018-01-22] MEDS ORDERED: ALBUMIN HUMAN 25% 50 ML IV ONE (03:45)
[2018-01-22] MEDS: HYDROCODONE/APAP 10-325 MG TABLET PO PRN (04:24)
[2018-01-22 05:54] LABS: BASOPHILS # (AUTO) 0.1 K/uL (0.0-8.0); BASOPHILS % (AUTO) 0.3 % (0.0-2.0); EOSINOPHILS # (AUTO) 0.8 K/uL (0.0-0.7); EOSINOPHILS % (AUTO) 3.8 % (0.0-7.0); HEMATOCRIT 38.4 % (36.7-47.1); HEMOGLOBIN 12.6 g/dL (12.5-16.3); LYMPHOCYTES # (AUTO) 1.9 K/uL (20.0-40.0); LYMPHOCYTES % (AUTO) 9.3 % (20.5-51.5); MEAN CORPUSCULAR HEMOGLOBIN 25.9 uug (23.8-33.4); MEAN CORPUSCULAR HGB CONC 33 g/dL (32.5-36.3); MEAN CORPUSCULAR VOLUME 79.1 fL (73.0-96.2); MONOCYTES # (AUTO) 1.4 K/uL (2.0-10.0); MONOCYTES % (AUTO) 6.9 % (0.0-11.0); NEUTROPHILS % (AUTO) 79.7 % (38.5-71.5); PLATELET COUNT (AUTO) 365 K/uL (152-348); RED BLOOD CELL COUNT(AUTO) 4.85 MIL/uL (4.06-5.63)
[2018-01-22 06:31] LABS: CARBON DIOXIDE 26 mmol/L (21-32); CHLORIDE 104 mmol/L (98-107); CREATININE 1.6 mg/dL (0.6-1.3); GLUCOSE 125 mg/dL (74-106); MAGNESIUM 1.7 mg/dL (1.8-2.4); PHOSPHOROUS 3.8 mg/dL (2.5-4.9); POTASSIUM 3.6 mmol/L (3.5-5.1); UREA NITROGEN, BLOOD 37 mg/dL (7-18)
--- NOTE | 2018-01-22 07:30 | NUR ---
RECIEVED PT LYING IN BED SLIGHTLY ANXIOUS. SPEAKS A LITTLE SPANISH. COLOR IS SLIGHTLY PALE. APPEARS A LITTLE BIT OF SOB. O2 ON 6L NC WITH HUMIDIFIER. SEEN AND [id number] BY BRENNON URBANO WITH NEW ORDERS. HR- SR. HL ON L AC PATENT AND INTACT. AFEBRILE.
[2018-01-22] MEDS ORDERED: ACETAMINOPHEN 325 MG TABLET PO PRN (08:00)
[2018-01-22] MEDS ORDERED: GUAIFENESIN/DEXTROMETHORPHAN 5 ML UDC PO PRN (08:00)
--- NOTE | 2018-01-22 08:30 | NUR ---
SON AT THE BEDSIDE. CONSENT SIGNED FOR ULTRASOUND GUIDED LEFT THORACENTHESIS BY SON. PT ATE VERY LITTLE.
[2018-01-22] MEDS: BLOOD SUGAR DIAGNOSTIC 1 EACH STRIP VI SCH ×4 (10:06→21:31)
[2018-01-22] MEDS: ASPIRIN 81 MG TAB.CHEW PO SCH (10:08)
[2018-01-22] MEDS: ACIDOPHILUS/BULGARICUS CHEW TAB PO SCH ×2 (10:08→17:46)
[2018-01-22] MEDS: DOCUSATE SODIUM 100 MG CAPSULE PO SCH ×2 (10:08→17:46)
[2018-01-22] MEDS: FUROSEMIDE 20 MG TABLET PO SCH (10:08)
[2018-01-22] MEDS: AMLODIPINE 10 MG TABLET PO SCH (10:09)
[2018-01-22] MEDS: AMIODARONE HCL 200 MG TABLET PO SCH (10:09)
[2018-01-22] MEDS: METOPROLOL TARTRATE 50 MG TABLET PO SCH ×2 (10:14→21:29)
[2018-01-22] MEDS: MULTIVITAMINS,THERAPEUTIC TABLET PO SCH (10:16)
[2018-01-22] MEDS: MEROPENEM 1 G in IV NORMAL SALINE 100 ML IV SCH ×2 (10:20→21:28)
[2018-01-22] MEDS: FLUTICASONE/VILANTEROL 1 EACH BLST.W.DEV IH SCH (10:22)
[2018-01-22] MEDS ORDERED: VANCOMYCIN IV 1 G in PREMIXED 0 EACH IV ONE (11:00)
[2018-01-22] MEDS: PROTEIN SUPPLEMENT (PROSTAT) 30 ML LIQUID PO SCH ×2 (12:25→17:46)
[2018-01-22] MEDS: INSULIN REGULAR, HUMAN 300 UNIT/3 ML VIAL SQ PRN ×2 (12:27→17:48)
[2018-01-22] MEDS: MIRALAX 17 GM POWD.PACK PO SCH (12:45)
--- NOTE | 2018-01-22 13:00 | NUR ---
LEFT THORACENTHESIS PERFORMED BY DR BLANDON AT THE BEDSIDE WITH US GUIDED. PT TOLERATED WELL. NO APPARENT DISTRESS NOTED. TOTAL DRAIN IS 1500ML OF BLOODY PLEURAL FLUIDS. POST THORACENTHESIS CXR DONE ORDERED. SPECIMENS SENT TO THE LAB ORDERED.
--- NOTE | 2018-01-22 13:10 | NUR ---
IV SITE GOT INFILTRATED. STARTED ANEW IV G20 ON THE RIGHT INNER FA.
--- NOTE | 2018-01-22 14:00 | NUR ---
PT IS BEDREST AND MONITORED VS Q 15MIN. NO RESPIRATORY DISTRESS NOTED. SLEEPING ON AND OFF WELL
[2018-01-22] MEDS ORDERED: MAGNESIUM SULFATE/D5W 100 ML IV SCH (14:30)
--- NOTE | 2018-01-22 14:41 | NUR ---
Clinical pharmacy note-Vancomycin dosing per pharmacy Subjective: To start Vancomycin dosing on this patient for suspected infection(possible sepsis) Objective: BUN 37 Scr 1.6 WBC 20 Temp 98.9 Assessment/Plan: Will start Vancomycin 1 gram IV every 28hrs( first dose given today at 1100) and draw trough by 4th dose(not ordered yet) for expected trough around 15. If renal function changes significantly tomorrow, will dc scheduled dosing and draw random for further dosing. Will monitor daily.
[2018-01-22] MEDS ORDERED: CITALOPRAM 10 MG TABLET PO SCH (15:14)
--- NOTE | 2018-01-22 18:00 | NUR ---
TO CT SCAN FOR CT OF THE CHEST ORDERED. TOLERATED WELL. PT IS SLEEPY. NO S/S OF PNEUMOTHORAX. PENDING CXR POST THORACENTHESIS. REFUSED TO EAT DINNER.
[2018-01-22] MEDS: DOXAZOSIN 2 MG TABLET PO SCH (21:28)
[2018-01-22] MEDS: TAMSULOSIN HCL 0.4 MG CAP.SR.24H PO SCH (21:29)
[2018-01-22] MEDS: TRAZODONE 50 MG TABLET PO SCH (21:30)
[2018-01-23] VITALS (24 sets, daily range): BP systolic 94–147; BP diastolic 47–79
[2018-01-23 05:46] LABS: BASOPHILS # (AUTO) 0.2 K/uL (0.0-8.0); BASOPHILS % (AUTO) 0.9 % (0.0-2.0); EOSINOPHILS # (AUTO) 1.2 K/uL (0.0-0.7); EOSINOPHILS % (AUTO) 5.2 % (0.0-7.0); HEMATOCRIT 36.4 % (36.7-47.1); HEMOGLOBIN 11.8 g/dL (12.5-16.3); LYMPHOCYTES # (AUTO) 2.2 K/uL (20.0-40.0); LYMPHOCYTES % (AUTO) 9.5 % (20.5-51.5); MEAN CORPUSCULAR HEMOGLOBIN 25.7 uug (23.8-33.4); MEAN CORPUSCULAR HGB CONC 33 g/dL (32.5-36.3); MEAN CORPUSCULAR VOLUME 78.8 fL (73.0-96.2); MONOCYTES # (AUTO) 1.4 K/uL (2.0-10.0); MONOCYTES % (AUTO) 6.1 % (0.0-11.0); NEUTROPHILS % (AUTO) 78.3 % (38.5-71.5); PLATELET COUNT (AUTO) 350 K/uL (152-348); RED BLOOD CELL COUNT(AUTO) 4.61 MIL/uL (4.06-5.63)
[2018-01-23 05:58] LABS: CARBON DIOXIDE 28 mmol/L (21-32); CREATININE 1.5 mg/dL (0.6-1.3); GLUCOSE 108 mg/dL (74-106); UREA NITROGEN, BLOOD 32 mg/dL (7-18)
[2018-01-23 06:15] LABS: CHLORIDE 102 mmol/L (98-107); POTASSIUM 3.3 mmol/L (3.5-5.1)
[2018-01-23] MEDS: BLOOD SUGAR DIAGNOSTIC 1 EACH STRIP VI SCH ×4 (06:53→20:39)
--- NOTE | 2018-01-23 06:53 | NUR ---
Accucheck results from laboratory report.
--- NOTE | 2018-01-23 07:30 | NUR ---
RECIEVED PT LYING IN BED, VERY SOUND ASLEEP, AND SOMEWHAT LETHARGIC. AROUSAVLE TO CALLING BY NAMES. PT IS NOT COOPERATIVE. PREFERS TO STAY ON HIS LEFT SIDE MOST OF THE TIME AND REFUSED TO TURN TO THE OTHER SIDE. O2 SAT IN THE LOW 91-92% ON AT 4LNC.
--- NOTE | 2018-01-23 08:00 | NUR ---
SEEN AND EXAMINED BY BRENNON ROOFING LAYER WITH NEW ORDERS. EXPLAINED TO THE SONS CONCERNING CT WITH CONTRAST INCLUDING THE ADVERS EFFECTS.
--- NOTE | 2018-01-23 08:30 | NUR ---
SEEN AND EXAMINED BY DR ANDUJAR WITH NEW ORDER. SPOKEN WITH SON AT THE BEDSIDE. DISCUSSED ABOUT CONSULTING A THORACIC SURGEON AND RECOMMENDED FOR PT TO HAVE A CT OF CHEST WITH CONTRAST.
[2018-01-23] MEDS: AMLODIPINE 10 MG TABLET PO SCH (09:00)
[2018-01-23] MEDS: AMIODARONE HCL 200 MG TABLET PO SCH (09:00)
[2018-01-23] MEDS: METOPROLOL TARTRATE 50 MG TABLET PO SCH ×2 (09:00→20:33)
[2018-01-23] MEDS: FUROSEMIDE 20 MG TABLET PO SCH (09:03)
[2018-01-23] MEDS: ACIDOPHILUS/BULGARICUS CHEW TAB PO SCH ×2 (09:03→18:26)
[2018-01-23] MEDS: DOCUSATE SODIUM 100 MG CAPSULE PO SCH ×2 (09:03→18:25)
[2018-01-23] MEDS: ASPIRIN 81 MG TAB.CHEW PO SCH (09:03)
[2018-01-23] MEDS: MULTIVITAMINS,THERAPEUTIC TABLET PO SCH (09:03)
[2018-01-23] MEDS: MIRALAX 17 GM POWD.PACK PO SCH (09:05)
[2018-01-23] MEDS: PROTEIN SUPPLEMENT (PROSTAT) 30 ML LIQUID PO SCH ×3 (09:08→18:26)
[2018-01-23] MEDS: MEROPENEM 1 G in IV NORMAL SALINE 100 ML IV SCH ×2 (09:08→20:32)
[2018-01-23] MEDS: FLUTICASONE/VILANTEROL 1 EACH BLST.W.DEV IH SCH (09:09)
--- NOTE | 2018-01-23 09:30 | NUR ---
PT ATE VERY LITTLE ABOUT 3% FOR BREAKFAST. PREFERS TO SLEEP AT ALL TIMES.
--- NOTE | 2018-01-23 09:45 | NUR ---
SON ASKED THAT CT BE DELAYED UNTIL THE NEXT DAY BECAUSE HE WANTED TO SIT DOWN WITH FAMILY AND DISCUSSED ABOUT THEIR DECISIONS.
[2018-01-23] MEDS ORDERED: POTASSIUM CHLORIDE 10 MEQ TAB.PRT.SR PO ONE (10:00)
[2018-01-23] MEDS ORDERED: IV NS 1000 ML 1,000 ML IV PRN (10:00)
--- NOTE | 2018-01-23 10:48 | NUR ---
Clinical pharmacy note-Vancomycin dosing per pharmacy Subjective: To continue Vancomycin dosing on this patient for suspected infection(possible sepsis) Objective: BUN 32 Scr 1.5 WBC 23 Temp 97.6 Assessment/Plan: Will continue same dose of Vancomycin 1 gram IV every 28hrs for today. 2nd dose due today at 1500. Plan to draw trough by 4th dose(not ordered yet) for expected trough around 16. Will monitor renal function & adjust the dose if needed. Will monitor daily.
--- NOTE | 2018-01-23 11:15 | NUR ---
PT BECOMES TOO LETHARGIC. NOTIFIED BRENNON TIME STUDY ANALYST AND ORDERED ABG STAT. PO2 IS LOW IN THE 50'S. PLACED ON O2 MASK AT 10L. O2 SAT INCREASED UP TO 93-94%.
[2018-01-23 12:00] LABS: ABG HCO3 25.6 mmol/L; ABG PCO2 32.8 mmHg (35.0-45.0); ABG PH 7.511 (7.350-7.450); ABG PO2 50.6 mmHg (75.0-100.0); ABG SITE RIGHT RADIAL; ABG TOTAL HEMOGLOBIN 12.3 G/dL (13.5-18.0); COHb 1.3 % (0.5-1.5); MetHb 0.3 % (0.0-1.5); O2Hb 84.2 % (94.0-97.0); VENT MODE Nasal Cannula
--- NOTE | 2018-01-23 12:30 | NUR ---
PT REFUSED TO EAT LUNCH AND CONTINUES TO SLEEP. HE WANTED TO DRINK WATER ONLY.
--- NOTE | 2018-01-23 13:30 | NUR ---
SEEN AND EXAMINED BY DR SIMMONS AND ABLE TO HAVE A LONG TALK WITH THE SON.
--- NOTE | 2018-01-23 14:30 | NUR ---
RUG HOOKER CAME TO SPEAK WITH THE SON AND DISCUSS ABOUT PT'S GOING TO HIGHER LEVEL OF CARE.
[2018-01-23] MEDS ORDERED: VANCOMYCIN IV 1 G in PREMIXED 0 EACH IV SCH (15:00)
--- NOTE | 2018-01-23 17:30 | NUR ---
PT IS MORE AWAKE. NOTIFIED BRENNON IMMIGRATION MANAGER. CANCELLED CT HEAD ORDERED. PT ATE SMALL AMOUNT FOR DINNER WITH MAX ASSIST.
[2018-01-23] MEDS: HYDROCODONE/APAP 10-325 MG TABLET PO PRN (18:25)
--- NOTE | 2018-01-23 18:30 | NUR ---
PT MEDICATED WITH NORCO 10 FOR C/O OF RIGHT BACK PAIN LEVEL 10.
[2018-01-23] MEDS: DOXAZOSIN 2 MG TABLET PO SCH (20:31)
[2018-01-23] MEDS: TAMSULOSIN HCL 0.4 MG CAP.SR.24H PO SCH (20:32)
[2018-01-23] MEDS: TRAZODONE 50 MG TABLET PO SCH (20:32)
[2018-01-23] MEDS: INSULIN REGULAR, HUMAN 300 UNIT/3 ML VIAL SQ PRN (20:42)
[2018-01-24] VITALS (23 sets, daily range): BP systolic 99–138; BP diastolic 48–75
[2018-01-24 05:10] LABS: BASOPHILS # (AUTO) 0.2 K/uL (0.0-8.0); BASOPHILS % (AUTO) 0.6 % (0.0-2.0); EOSINOPHILS # (AUTO) 1.4 K/uL (0.0-0.7); EOSINOPHILS % (AUTO) 5.7 % (0.0-7.0); HEMATOCRIT 38.4 % (36.7-47.1); HEMOGLOBIN 12.5 g/dL (12.5-16.3); LYMPHOCYTES # (AUTO) 2.6 K/uL (20.0-40.0); LYMPHOCYTES % (AUTO) 10.6 % (20.5-51.5); MEAN CORPUSCULAR HEMOGLOBIN 25.7 uug (23.8-33.4); MEAN CORPUSCULAR HGB CONC 33 g/dL (32.5-36.3); MEAN CORPUSCULAR VOLUME 78.7 fL (73.0-96.2); MONOCYTES # (AUTO) 1.5 K/uL (2.0-10.0); MONOCYTES % (AUTO) 6.2 % (0.0-11.0); NEUTROPHILS # (AUTO) 18.6 K/uL (1.8-8.9); NEUTROPHILS % (AUTO) 76.9 % (38.5-71.5); PLATELET COUNT (AUTO) 319 K/uL (152-348); RED BLOOD CELL COUNT(AUTO) 4.89 MIL/uL (4.06-5.63); WHITE BLOOD COUNT (AUTO) 24.2 K/uL (3.6-10.2)
[2018-01-24 05:19] LABS: CARBON DIOXIDE 28 mmol/L (21-32); CHLORIDE 103 mmol/L (98-107); CREATININE 1.4 mg/dL (0.6-1.3); GLUCOSE 97 mg/dL (74-106); POTASSIUM 3.7 mmol/L (3.5-5.1); UREA NITROGEN, BLOOD 30 mg/dL (7-18)
--- NOTE | 2018-01-24 06:33 | NUR ---
Accucheck results from laboratory report.
[2018-01-24] MEDS: BLOOD SUGAR DIAGNOSTIC 1 EACH STRIP VI SCH ×4 (06:34→20:59)
[2018-01-24] MEDS: PROTEIN SUPPLEMENT (PROSTAT) 30 ML LIQUID PO SCH ×3 (08:00→16:13)
[2018-01-24] MEDS: ACIDOPHILUS/BULGARICUS CHEW TAB PO SCH ×2 (08:05→16:16)
[2018-01-24] MEDS: ASPIRIN 81 MG TAB.CHEW PO SCH (08:05)
[2018-01-24] MEDS: DOCUSATE SODIUM 100 MG CAPSULE PO SCH ×2 (08:05→16:16)
[2018-01-24] MEDS: AMIODARONE HCL 200 MG TABLET PO SCH (08:05)
[2018-01-24] MEDS: FUROSEMIDE 20 MG TABLET PO SCH (08:06)
[2018-01-24] MEDS: MULTIVITAMINS,THERAPEUTIC TABLET PO SCH (08:06)
[2018-01-24] MEDS: AMLODIPINE 10 MG TABLET PO SCH (08:06)
[2018-01-24] MEDS: MIRALAX 17 GM POWD.PACK PO SCH (08:06)
[2018-01-24] MEDS: METOPROLOL TARTRATE 50 MG TABLET PO SCH ×3 (08:06→21:00)
[2018-01-24] MEDS: FLUTICASONE/VILANTEROL 1 EACH BLST.W.DEV IH SCH (08:07)
[2018-01-24] MEDS: MEROPENEM 1 G in IV NORMAL SALINE 100 ML IV SCH ×2 (08:46→20:58)
--- NOTE | 2018-01-24 11:51 | NUR ---
Dr. Alfaro (cardio) and YOLIE Good here at the bedside with the family.
[2018-01-24] MEDS ORDERED: IV NORMAL SALINE 100 ML ONE (12:05)
[2018-01-24] MEDS ORDERED: NORMAL SALINE FLUSH 10 ML DISP.SYRIN ONE (12:05)
[2018-01-24] MEDS ORDERED: SWABABLE VALVE TRANSFER SET EA MC ONE (12:05)
[2018-01-24] MEDS ORDERED: IOHEXOL 300MG/ML 100 ML INFUS..BTL ONE (12:05)
[2018-01-24] MEDS ORDERED: IOHEXOL 350 100 ML INFUS..BTL ONE (12:32)
--- NOTE | 2018-01-24 13:20 | NUR ---
Brought pt down to CT chest with it telecom technician. Pt stable and nad noted upon transfer.
--- NOTE | 2018-01-24 13:55 | NUR ---
Pt brought back from CT chest with technical support intern. Pt stable and nad noted upon returning to the unit.
[2018-01-24] MEDS: IV NS 1000 ML 1,000 ML IV PRN (14:07)
--- NOTE | 2018-01-24 15:48 | NUR ---
Clinical pharmacy note-Vancomycin dosing per pharmacy Subjective: To continue Vancomycin dosing on this patient for suspected infection(possible sepsis) Objective: BUN 30 Scr 1.4 WBC 24.2 Temp 98.3 Assessment/Plan: Since renal function is continuously improved and wbc is increasing, will change dose to 1 gram every 26hrs (second dose tonight at 1700) from 1 gram every 28hrs for expected trough around 15. If renal function changes significantly, will consider to dose by fall-off random level. Will monitor daily.
[2018-01-24] MEDS ORDERED: VANCOMYCIN IV 1 G in PREMIXED 0 EACH IV SCH (17:00)
--- NOTE | 2018-01-24 18:00 | NUR ---
Pt's imaging CD's brought down to the lab. Cigarette Paper Tester to pick-up and send to [facility].
[2018-01-24] MEDS: TAMSULOSIN HCL 0.4 MG CAP.SR.24H PO SCH (20:58)
[2018-01-24] MEDS: TRAZODONE 50 MG TABLET PO SCH (20:59)
[2018-01-24] MEDS: DOXAZOSIN 2 MG TABLET PO SCH (20:59)
[2018-01-24] MEDS: HYDROCODONE/APAP 5-325MG TABLET PO PRN (21:17)
[2018-01-25] VITALS (23 sets, daily range): BP systolic 94–142; BP diastolic 43–72
[2018-01-25] MEDS: HYDROCODONE/APAP 5-325MG TABLET PO PRN ×4 (00:58→21:03)
[2018-01-25] MEDS: IV NS 1000 ML 1,000 ML IV PRN (02:24)
[2018-01-25] MEDS: ACETAMINOPHEN 325 MG TABLET PO PRN (02:24)
[2018-01-25 05:08] LABS: BASOPHILS # (AUTO) 0.2 K/uL (0.0-8.0); BASOPHILS % (AUTO) 0.8 % (0.0-2.0); EOSINOPHILS # (AUTO) 1.2 K/uL (0.0-0.7); HEMATOCRIT 34.8 % (36.7-47.1); HEMOGLOBIN 11.3 g/dL (12.5-16.3); LYMPHOCYTES # (AUTO) 2.2 K/uL (20.0-40.0); LYMPHOCYTES % (AUTO) 10.9 % (20.5-51.5); MEAN CORPUSCULAR HEMOGLOBIN 25.5 uug (23.8-33.4); MEAN CORPUSCULAR HGB CONC 32 g/dL (32.5-36.3); MEAN CORPUSCULAR VOLUME 78.8 fL (73.0-96.2); MONOCYTES # (AUTO) 1.4 K/uL (2.0-10.0); MONOCYTES % (AUTO) 7.2 % (0.0-11.0); NEUTROPHILS % (AUTO) 75.1 % (38.5-71.5); PLATELET COUNT (AUTO) 282 K/uL (152-348); RED BLOOD CELL COUNT(AUTO) 4.42 MIL/uL (4.06-5.63)
[2018-01-25 05:20] LABS: CARBON DIOXIDE 25 mmol/L (21-32); CHLORIDE 104 mmol/L (98-107); CREATININE 1.3 mg/dL (0.6-1.3); GLUCOSE 93 mg/dL (74-106); POTASSIUM 3.7 mmol/L (3.5-5.1); UREA NITROGEN, BLOOD 29 mg/dL (7-18)
[2018-01-25] MEDS: BLOOD SUGAR DIAGNOSTIC 1 EACH STRIP VI SCH ×4 (07:30→21:17)
--- NOTE | 2018-01-25 07:35 | NUR ---
Dr. Alfaro here to see pt. Full report given. New orders received.
[2018-01-25] MEDS: MULTIVITAMINS,THERAPEUTIC TABLET PO SCH (07:44)
[2018-01-25] MEDS: AMLODIPINE 10 MG TABLET PO SCH (07:44)
[2018-01-25] MEDS: ACIDOPHILUS/BULGARICUS CHEW TAB PO SCH ×2 (07:45→16:52)
[2018-01-25] MEDS: ASPIRIN 81 MG TAB.CHEW PO SCH (07:45)
[2018-01-25] MEDS: DOCUSATE SODIUM 100 MG CAPSULE PO SCH ×2 (07:45→16:52)
[2018-01-25] MEDS: AMIODARONE HCL 200 MG TABLET PO SCH (07:46)
[2018-01-25] MEDS: METOPROLOL TARTRATE 50 MG TABLET PO SCH ×2 (07:50→21:00)
[2018-01-25] MEDS: MIRALAX 17 GM POWD.PACK PO SCH (07:52)
[2018-01-25] MEDS: PROTEIN SUPPLEMENT (PROSTAT) 30 ML LIQUID PO SCH ×3 (07:52→16:54)
[2018-01-25] MEDS: FLUTICASONE/VILANTEROL 1 EACH BLST.W.DEV IH SCH (07:53)
[2018-01-25] MEDS: FUROSEMIDE 20 MG TABLET PO SCH ×2 (07:56→16:52)
[2018-01-25] MEDS: MEROPENEM 1 G in IV NORMAL SALINE 100 ML IV SCH ×2 (08:29→21:04)
--- NOTE | 2018-01-25 11:34 | NUR ---
Clinical pharmacy note-Vancomycin dosing per pharmacy Subjective: To continue Vancomycin dosing on this patient for suspected infection(possible sepsis) Objective: BUN 29 Scr 1.3 WBC 20 Temp 98.1 Vanco random level: pending Assessment/Plan: Since renal function is continuously improved (unstable), will change to dose by level. Patient received vanco 1gm IVPB x1 yesterday at 1700. Plan to check vanco random level today at 1800. Pharmacy shall review the level for further dosing. Will monitor daily. Addendum: 01/25/18 at 2038 by MARQUIS LARA RANDOM VANCOMYCIN 10.8 GIVE VANCOMYCIN 1GM IVPB TONIGHT. REPEAT RANDOM LEVEL TOMORROW EVENING
[2018-01-25 11:49] LABS: BILIRUBIN,DIRECT 0.6 mg/dL (0.0-0.2); BILIRUBIN,TOTAL 0.9 mg/dL (0.2-1.0)
--- NOTE | 2018-01-25 13:34 | NUR ---
Dr. Nathan here to see pt. Full report given. No new orders received. Addendum: 01/25/18 at 1340 by JAROD MALONE RN MD aware of pt's critical value albumin 1.3L.
[2018-01-25 19:02] LABS: *BILIRUBIN,URIN NEGATIVE (NEGATIVE); *BLOOD, URINE 3+ (NEGATIVE); *KETONES,URINE TRACE (NEGATIVE); *PROTEIN,URINE 1+ (NEGATIVE); LEUKOCYTE ESTERASE ,URINE NEGATIVE (NEGATIVE); NITRITE, URINE NEGATIVE (NEGATIVE); UGLUCOSE NEGATIVE (NEGATIVE)
[2018-01-25 20:55] LABS: *CLARITY,URINE HAZY (CLEAR); *COLOR,URINE DARK YELLOW (YELLOW)
[2018-01-25 20:57] LABS: MUCUS,URINE FEW /LPF (0-FEW); RBC,URINE 50-80 /HPF (0-3)
[2018-01-25] MEDS ORDERED: VANCOMYCIN IV 1 G in PREMIXED 0 EACH IV ONE (21:00)
--- NOTE | 2018-01-25 21:00 | NUR ---
Accu-chek done, Glu 112. No insulin given per sliding scale.
[2018-01-25] MEDS: TAMSULOSIN HCL 0.4 MG CAP.SR.24H PO SCH (21:03)
[2018-01-25] MEDS: TRAZODONE 50 MG TABLET PO SCH (21:03)
[2018-01-25] MEDS: DOXAZOSIN 2 MG TABLET PO SCH (21:03)
[2018-01-26] VITALS (23 sets, daily range): BP systolic 98–176; BP diastolic 40–72
[2018-01-26 05:16] LABS: BASOPHILS # (AUTO) 0.2 K/uL (0.0-8.0); BASOPHILS % (AUTO) 0.8 % (0.0-2.0); EOSINOPHILS # (AUTO) 1.7 K/uL (0.0-0.7); EOSINOPHILS % (AUTO) 8.2 % (0.0-7.0); HEMATOCRIT 37.5 % (36.7-47.1); HEMOGLOBIN 12.2 g/dL (12.5-16.3); LYMPHOCYTES % (AUTO) 9.8 % (20.5-51.5); MEAN CORPUSCULAR HEMOGLOBIN 25.6 uug (23.8-33.4); MEAN CORPUSCULAR HGB CONC 33 g/dL (32.5-36.3); MEAN CORPUSCULAR VOLUME 78.8 fL (73.0-96.2); MONOCYTES # (AUTO) 1.3 K/uL (2.0-10.0); MONOCYTES % (AUTO) 6.2 % (0.0-11.0); NEUTROPHILS # (AUTO) 15.3 K/uL (1.8-8.9); PLATELET COUNT (AUTO) 299 K/uL (152-348); RED BLOOD CELL COUNT(AUTO) 4.76 MIL/uL (4.06-5.63); WHITE BLOOD COUNT (AUTO) 20.4 K/uL (3.6-10.2)
[2018-01-26 05:34] LABS: ALANINE AMINOTRANSFERASE 121 U/L (16-63); ALKALINE PHOSPHATASE 939 U/L (50-136); ASPARTATE AMINOTRANSFERASE 114 U/L (15-37); BILIRUBIN,TOTAL 1.1 mg/dL (0.2-1.0); CARBON DIOXIDE 24 mmol/L (21-32); CHLORIDE 104 mmol/L (98-107); CREATININE 1.2 mg/dL (0.6-1.3); GLUCOSE 93 mg/dL (74-106); MAGNESIUM 1.8 mg/dL (1.8-2.4); PHOSPHOROUS 3.4 mg/dL (2.5-4.9); POTASSIUM 4.1 mmol/L (3.5-5.1); TOTAL PROTEIN, SERUM 5.3 g/dL (6.4-8.2); UREA NITROGEN, BLOOD 27 mg/dL (7-18)
--- NOTE | 2018-01-26 06:00 | NUR ---
Accu-check 114 glucose. No insulin coverage needed.
[2018-01-26 06:03] LABS: BAND % (MANUAL) 3 % (0-10); EOSINOPHILS % (MANUAL) 7 % (0-8); LYMPHOCYTES % (MANUAL) 6 % (20-40); METAMYELOCYTES % 2 % (0-1); MONOCYTES % (MANUAL) 4 % (2-10); MYELOCYTES % 1 % (0-0); NEUTROPHILS % (MANUAL) 73 % (42-75); PROMYELOCYTES % 1 %
[2018-01-26] MEDS: BLOOD SUGAR DIAGNOSTIC 1 EACH STRIP VI SCH ×4 (06:44→20:29)
[2018-01-26] MEDS: ACIDOPHILUS/BULGARICUS CHEW TAB PO SCH ×2 (08:17→16:31)
[2018-01-26] MEDS: ASPIRIN 81 MG TAB.CHEW PO SCH (08:17)
[2018-01-26] MEDS: DOCUSATE SODIUM 100 MG CAPSULE PO SCH ×2 (08:17→16:23)
[2018-01-26] MEDS: MULTIVITAMINS,THERAPEUTIC TABLET PO SCH (08:18)
[2018-01-26] MEDS: FUROSEMIDE 20 MG TABLET PO SCH ×2 (08:20→16:31)
[2018-01-26] MEDS: MIRALAX 17 GM POWD.PACK PO SCH (08:22)
[2018-01-26] MEDS: METOPROLOL TARTRATE 50 MG TABLET PO SCH ×2 (08:22→20:33)
[2018-01-26] MEDS: AMIODARONE HCL 200 MG TABLET PO SCH (08:22)
[2018-01-26] MEDS: AMLODIPINE 10 MG TABLET PO SCH (08:22)
[2018-01-26] MEDS: PROTEIN SUPPLEMENT (PROSTAT) 30 ML LIQUID PO SCH ×3 (08:23→16:31)
[2018-01-26] MEDS: FLUTICASONE/VILANTEROL 1 EACH BLST.W.DEV IH SCH (08:24)
[2018-01-26] MEDS: HYDROCODONE/APAP 10-325 MG TABLET PO PRN ×2 (08:30→17:12)
[2018-01-26] MEDS: MEROPENEM 1 G in IV NORMAL SALINE 100 ML IV SCH ×2 (08:48→20:33)
--- NOTE | 2018-01-26 12:03 | NUR ---
Dr. Alfaro in the unit to examine patient.
--- NOTE | 2018-01-26 13:15 | NUR ---
IV SITE INFILTRATED AND RED, AND LEAKING. STARTED A NEW LINE ON THE RIGHT UPPER ARM G20. BRAXTON LOCK RN
--- NOTE | 2018-01-26 13:41 | NUR ---
Clinical pharmacy note-Vancomycin dosing per pharmacy Subjective: To continue Vancomycin dosing on this patient for suspected infection(possible sepsis, R/O pneumonia) Objective: BUN 27 Scr 1.2 WBC 20.4 Temp 98.8 Vanco random level: pending(tonight at 1800) Assessment/Plan: Since renal function is continuously improved (unstable), will continue to dose by level. Patient received vanco 1gm IVPB x1 yesterday at 2157. Plan to check vanco random level today at 1800. Pharmacy shall review the level for further dosing. Will monitor daily. Addendum: 01/26/18 at 1932 by MARQUIS GARDINER ADM RANDOM VANCOMYCIN LEVEL 13.3.Give vancomycin 1gm ivpb tonight. repeat random level tomorrow evening
--- NOTE | 2018-01-26 16:27 | NUR ---
Accucheck of 131 requiring insulin coverage not administered for been in the border line attending Md. notified that patient not eating at all see nutrition flow sheet. (last night required an amp of D50%.
--- NOTE | 2018-01-26 16:58 | NUR ---
Dr. Anna Liu attending physician in the unit to examine patient, full report given, and as stated by physician he's been communicating with pt's blanking press operator Dr. Horn and will as well call pt's son.
[2018-01-26] MEDS ORDERED: Z GUARD REMEDY PASTE 57 GM TUBE TOP PRN (17:30)
[2018-01-26] MEDS ORDERED: VANCOMYCIN IV 1 G in PREMIXED 0 EACH IV ONE (20:00)
--- NOTE | 2018-01-26 20:00 | NUR ---
RECEIVED PT AWAKE, ALERT & ORIENTED X2, FOLLOWS TO COMMAND. ON O2 2 6LNC W/ O2 SAT OF 96%. HEP LOCK INTACT ON KANDIS. C-SCOPE SR. AFEBRILE. BP STABLE. REPOSITIONED ON HIS L SIDE W/ HOB ELEVATED. NOT IN ANY DISTRESS.
[2018-01-26] MEDS: INSULIN REGULAR, HUMAN 300 UNIT/3 ML VIAL SQ PRN (20:32)
[2018-01-26] MEDS: TRAZODONE 50 MG TABLET PO SCH (20:32)
[2018-01-26] MEDS: DOXAZOSIN 2 MG TABLET PO SCH (20:32)
[2018-01-26] MEDS: TAMSULOSIN HCL 0.4 MG CAP.SR.24H PO SCH (20:33)
[2018-01-26] MEDS: ACETAMINOPHEN 325 MG TABLET PO PRN (21:17)
--- NOTE | 2018-01-26 22:00 | NUR ---
HS CARE DONE. ORAL CARE DONE. REPOSITIONED W/ HOB ELEVATED.
[2018-01-27] VITALS (24 sets, daily range): BP systolic 101–151; BP diastolic 53–83
--- NOTE | 2018-01-27 | NUR ---
V/S STABLE. O2 SAT ADEQ,
[2018-01-27 05:21] LABS: BASOPHILS # (AUTO) 0.1 K/uL (0.0-8.0); BASOPHILS % (AUTO) 0.7 % (0.0-2.0); EOSINOPHILS # (AUTO) 1.9 K/uL (0.0-0.7); EOSINOPHILS % (AUTO) 9.6 % (0.0-7.0); HEMOGLOBIN 12.2 g/dL (12.5-16.3); LYMPHOCYTES # (AUTO) 2.3 K/uL (20.0-40.0); LYMPHOCYTES % (AUTO) 11.6 % (20.5-51.5); MEAN CORPUSCULAR HEMOGLOBIN 25.5 uug (23.8-33.4); MEAN CORPUSCULAR HGB CONC 32 g/dL (32.5-36.3); MEAN CORPUSCULAR VOLUME 79.2 fL (73.0-96.2); MONOCYTES # (AUTO) 1.4 K/uL (2.0-10.0); MONOCYTES % (AUTO) 7.1 % (0.0-11.0); NEUTROPHILS # (AUTO) 14.2 K/uL (1.8-8.9); PLATELET COUNT (AUTO) 262 K/uL (152-348); WHITE BLOOD COUNT (AUTO) 20.1 K/uL (3.6-10.2)
--- NOTE | 2018-01-27 05:30 | NUR ---
AM CARE DONE ORAL CARE DONE. REPOSITIONED. PT. FAVORED ON HIS L SIDE. KEPT HOB ELEVATED.
[2018-01-27 05:48] LABS: ALANINE AMINOTRANSFERASE 164 U/L (16-63); ALKALINE PHOSPHATASE 1291 U/L (50-136); ASPARTATE AMINOTRANSFERASE 164 U/L (15-37); BILIRUBIN,TOTAL 1.1 mg/dL (0.2-1.0); CARBON DIOXIDE 26 mmol/L (21-32); CHLORIDE 103 mmol/L (98-107); CREATININE 1.2 mg/dL (0.6-1.3); GLUCOSE 101 mg/dL (74-106); MAGNESIUM 1.6 mg/dL (1.8-2.4); POTASSIUM 3.8 mmol/L (3.5-5.1); TOTAL PROTEIN, SERUM 5.1 g/dL (6.4-8.2); UREA NITROGEN, BLOOD 27 mg/dL (7-18)
[2018-01-27 06:21] LABS: EOSINOPHILS % (MANUAL) 3 % (0-8); LYMPHOCYTES % (MANUAL) 15 % (20-40); MONOCYTES % (MANUAL) 6 % (2-10); NEUTROPHILS % (MANUAL) 76 % (42-75)
[2018-01-27] MEDS: BLOOD SUGAR DIAGNOSTIC 1 EACH STRIP VI SCH ×4 (07:40→20:51)
[2018-01-27] MEDS: ACIDOPHILUS/BULGARICUS CHEW TAB PO SCH ×2 (08:02→17:22)
[2018-01-27] MEDS: ASPIRIN 81 MG TAB.CHEW PO SCH (08:02)
[2018-01-27] MEDS: AMIODARONE HCL 200 MG TABLET PO SCH (08:03)
[2018-01-27] MEDS: METOPROLOL TARTRATE 50 MG TABLET PO SCH ×2 (08:03→20:50)
[2018-01-27] MEDS: AMLODIPINE 10 MG TABLET PO SCH (08:03)
[2018-01-27] MEDS: DOCUSATE SODIUM 100 MG CAPSULE PO SCH ×2 (08:04→17:00)
[2018-01-27] MEDS: HYDROCODONE/APAP 10-325 MG TABLET PO PRN ×2 (08:04→21:22)
[2018-01-27] MEDS: FUROSEMIDE 20 MG TABLET PO SCH ×2 (08:04→17:22)
[2018-01-27] MEDS: FLUTICASONE/VILANTEROL 1 EACH BLST.W.DEV IH SCH (08:05)
[2018-01-27] MEDS: PROTEIN SUPPLEMENT (PROSTAT) 30 ML LIQUID PO SCH ×3 (08:08→17:22)
[2018-01-27] MEDS: MIRALAX 17 GM POWD.PACK PO SCH (08:13)
[2018-01-27] MEDS: MULTIVITAMINS,THERAPEUTIC TABLET PO SCH (08:14)
[2018-01-27] MEDS: MEROPENEM 1 G in IV NORMAL SALINE 100 ML IV SCH ×2 (08:40→20:51)
[2018-01-27] MEDS: HYDROCODONE/APAP 5-325MG TABLET PO PRN (10:06)
--- NOTE | 2018-01-27 12:00 | NUR ---
Accu check of 138 not covered Md. notified, pt's blood sugar on the border line.
--- NOTE | 2018-01-27 14:07 | NUR ---
Clinical pharmacy note-Vancomycin dosing per pharmacy Subjective: To continue Vancomycin dosing on this patient for suspected infection(possible sepsis, R/O pneumonia) Objective: BUN 27 Scr 1.2 WBC 20.1 Temp 98.1 Vanco random level: pending(tonight at 1800) Assessment/Plan: Since renal function has improved but may still be unstable, will continue to dose by level. Patient received vanco 1gm IVPB x1 yesterday evening. Plan to check vanco random level today at 1800. Pharmacy shall review the level for further dosing. Will monitor daily. Addendum: 01/27/18 at 2105 by SHANTELL QUIJANO ADM VANCO LEVEL WAS 14.8 @ 1800 WILL GIVE ANOTHER DOSE OF VANCOMYCIN 1 GM X 1. WILL CONTINUE MONITORING
[2018-01-27] MEDS: MAGNESIUM SULFATE/D5W 100 ML IV SCH ×2 (14:46→15:59)
--- NOTE | 2018-01-27 15:10 | NUR ---
Pulmonary services Dr. Whitfield in the unit to examine patient, full report given, no orders received.
--- NOTE | 2018-01-27 15:23 | NUR ---
A call from Dr. Burgess and orders to put patient NPO past MN received, also orders to notify family to be here at 1130 am on 01/28/18. Addendum: 01/27/18 at 1530 by IRVING RASHEED RN To discuss pleurax catheter placement and obtain consent.
[2018-01-27] MEDS: INSULIN REGULAR, HUMAN 300 UNIT/3 ML VIAL SQ PRN (16:26)
--- NOTE | 2018-01-27 16:46 | NUR ---
Dr. Echeverria in the unit to examine patient; full report given, see orders.
--- NOTE | 2018-01-27 17:10 | NUR ---
Pt's son Mr. Panchito Smallwood in the unit and he was informed of Dr. Debbi Whitaker's request to be here at 1130 on 01/28/18. Mr. Flanagan stated he wont be able to come. Dr. Werner called and over the phone he explain both patient and pt's son and consented patient for left pleurax catheter placement. See documentation. Addendum: 01/28/18 at 1825 by IRVING RASHEED RN Patient at this moment allowing son Mr. Panchito Smallwood to sign consent for procedure stating "I'm feeling too week" .
[2018-01-27] MEDS: TAMSULOSIN HCL 0.4 MG CAP.SR.24H PO SCH (20:50)
[2018-01-27] MEDS: TRAZODONE 50 MG TABLET PO SCH (20:50)
[2018-01-27] MEDS: DOXAZOSIN 2 MG TABLET PO SCH (20:51)
[2018-01-27] MEDS ORDERED: VANCOMYCIN IV 1 G in PREMIXED 0 EACH IV ONE (21:00)
--- NOTE | 2018-01-27 21:00 | NUR ---
Glucose 145. Held insulin coverage for poor PO intake and no IVF. Will continue to monitor and recheck in AM
[2018-01-28] VITALS (17 sets, daily range): BP systolic 90–132; BP diastolic 49–70
[2018-01-28 05:20] LABS: CARBON DIOXIDE 27 mmol/L (21-32); CHLORIDE 104 mmol/L (98-107); CREATININE 1.4 mg/dL (0.6-1.3); GLUCOSE 117 mg/dL (74-106); UREA NITROGEN, BLOOD 34 mg/dL (7-18)
[2018-01-28 06:58] LABS: BASOPHILS # (AUTO) 0.2 K/uL (0.0-8.0); EOSINOPHILS # (AUTO) 1.4 K/uL (0.0-0.7); EOSINOPHILS % (AUTO) 7.2 % (0.0-7.0); HEMATOCRIT 35.9 % (36.7-47.1); HEMOGLOBIN 11.7 g/dL (12.5-16.3); LYMPHOCYTES # (AUTO) 2.5 K/uL (20.0-40.0); LYMPHOCYTES % (AUTO) 12.8 % (20.5-51.5); MEAN CORPUSCULAR HEMOGLOBIN 25.8 uug (23.8-33.4); MEAN CORPUSCULAR HGB CONC 33 g/dL (32.5-36.3); MEAN CORPUSCULAR VOLUME 79.6 fL (73.0-96.2); MONOCYTES # (AUTO) 1.2 K/uL (2.0-10.0); MONOCYTES % (AUTO) 6.1 % (0.0-11.0); NEUTROPHILS # (AUTO) 14.4 K/uL (1.8-8.9); NEUTROPHILS % (AUTO) 72.9 % (38.5-71.5); PLATELET COUNT (AUTO) 254 K/uL (152-348); RED BLOOD CELL COUNT(AUTO) 4.51 MIL/uL (4.06-5.63); WHITE BLOOD COUNT (AUTO) 19.7 K/uL (3.6-10.2)
[2018-01-28] MEDS: BLOOD SUGAR DIAGNOSTIC 1 EACH STRIP VI SCH ×4 (07:25→20:44)
[2018-01-28] MEDS: PROTEIN SUPPLEMENT (PROSTAT) 30 ML LIQUID PO SCH ×3 (08:00→18:15)
[2018-01-28] MEDS: MEROPENEM 1 G in IV NORMAL SALINE 100 ML IV SCH ×2 (08:24→20:39)
[2018-01-28] MEDS: FLUTICASONE/VILANTEROL 1 EACH BLST.W.DEV IH SCH (08:26)
[2018-01-28] MEDS: ASPIRIN 81 MG TAB.CHEW PO SCH (09:00)
[2018-01-28] MEDS: AMIODARONE HCL 200 MG TABLET PO SCH (09:00)
[2018-01-28] MEDS: DOCUSATE SODIUM 100 MG CAPSULE PO SCH ×2 (09:00→17:53)
[2018-01-28] MEDS: AMLODIPINE 10 MG TABLET PO SCH (09:00)
[2018-01-28] MEDS: MIRALAX 17 GM POWD.PACK PO SCH (09:00)
[2018-01-28] MEDS: FUROSEMIDE 20 MG TABLET PO SCH ×2 (09:00→17:53)
[2018-01-28] MEDS: ACIDOPHILUS/BULGARICUS CHEW TAB PO SCH ×2 (09:00→17:53)
[2018-01-28] MEDS: METOPROLOL TARTRATE 50 MG TABLET PO SCH (09:00)
[2018-01-28] MEDS: MULTIVITAMINS,THERAPEUTIC TABLET PO SCH (09:00)
[2018-01-28] MEDS: HYDROCODONE/APAP 5-325MG TABLET PO PRN (10:24)
[2018-01-28] MEDS ORDERED: FENTANYL CITRATE 100 MCG/2 ML AMPUL ONE (11:32)
--- NOTE | 2018-01-28 11:33 | NUR ---
PICKED UP BY OR NURSING staff for insertion of pleural drain Addendum: 01/28/18 at 1133 by YANN LOW RN Amended: Links added.
[2018-01-28] MEDS ORDERED: CEFAZOLIN 1 G VIAL MC ONE (11:46)
[2018-01-28] MEDS ORDERED: PROPOFOL 200 MG/20 ML BOTTLE IV ONE (11:46)
--- NOTE | 2018-01-28 13:14 | NUR ---
back to room from PACU, fully recovered. dressing to left lower lateral side of the chest noted. site is drr and clean Addendum: 01/28/18 at 1316 by YANN LOW RN Amended: Links added.
--- NOTE | 2018-01-28 15:37 | NUR ---
Clinical pharmacy note-Vancomycin dosing per pharmacy Subjective: To continue Vancomycin dosing on this patient for suspected infection(possible sepsis, R/O pneumonia) Objective: BUN 34 Scr 1.4 WBC 19.7 Temp 98.6 Vanco random level: pending(tonight at 1800) Assessment/Plan: Since renal function has improved but may still be unstable, will continue to dose by level. Patient received vanco 1gm IVPB x1 yesterday evening. Plan to check vanco random level today at 1800. Pharmacy shall review the level for further dosing. Will monitor daily. Addendum: 01/28/18 at 1900 by MARQUIS GARDINER ADM Random level at 1800 19. Will order vancomycin 1gm ivpb x 1 for 2099. Vancomycin to be discontinued after this dose Per Dr. Bejarano
[2018-01-28] MEDS: INSULIN REGULAR, HUMAN 300 UNIT/3 ML VIAL SQ PRN ×2 (17:54→20:45)
--- NOTE | 2018-01-28 20:00 | NUR ---
RECEIVED PT. AWAKE, ALERT & ORIENTED X2, FOLLOWS TO COMMAND. ON O2 @ 2LNC W/ O2 SAT OF 97%. PLEURX DRAIN CATH INTACT & CLAMPED COVERED W/ DRSG. HEP LOCK INTACT & PATENT ON LFA. CARTY CATH IN PLACE W/ TEA COLOR URINE. DENIES PAIN. REPOSITIONED ON HIS SIDE W/ HOB ELEVATED. NOT IN ANY DISTRESS.
[2018-01-28] MEDS: TAMSULOSIN HCL 0.4 MG CAP.SR.24H PO SCH (20:40)
[2018-01-28] MEDS: TRAZODONE 50 MG TABLET PO SCH (20:40)
[2018-01-28] MEDS: DOXAZOSIN 2 MG TABLET PO SCH (20:41)
[2018-01-28] MEDS ORDERED: VANCOMYCIN IV 1 G in PREMIXED 0 EACH IV ONE (21:00)
--- NOTE | 2018-01-28 23:00 | NUR ---
HS CARE DONE. REPOSITIONED W/ HOB ELEVATED.
[2018-01-29] VITALS (22 sets, daily range): BP systolic 93–146; BP diastolic 49–76
--- NOTE | 2018-01-29 | NUR ---
RECEIVED PT AWAKE, ALERT & ORIENTED X2, FOLLOWS TO COMMAND. ON O2 @ 2L NC W/ O2 SAT OF 97%. PICC LINE INTACT ON KANDIS , PORTS ARE PATENT.AFEBRILE. BP STABLE. REPOSITIONED ON HIS W/ HOB ELEVATED. Addendum: 01/30/18 at 0057 by RADHA WINKLER RN CHARTING DONE FOR 2000 TIME.
[2018-01-29] MEDS: ACETAMINOPHEN 325 MG TABLET PO PRN (00:04)
[2018-01-29] MEDS: HYDROCODONE/APAP 10-325 MG TABLET PO PRN ×2 (02:57→14:34)
--- NOTE | 2018-01-29 02:57 | NUR ---
MEDICATED W/ NORCO 10/325 1 TAB PO FOR FACIAL GRIMACING & MOANING. REPOSITIONED FOR COMFORTS.
[2018-01-29] MEDS ORDERED: NORMAL SALINE FLUSH 10 ML DISP.SYRIN IV PRN (05:45)
--- NOTE | 2018-01-29 05:56 | NUR ---
AM CARE DONE. ORAL CARE DONE & SHAVED PT. REPOSITIONED ON HIS SIDE W/ HOB ELEVATED. HEP LOCK INTACT & PATENT.
[2018-01-29] MEDS: NORMAL SALINE FLUSH 10 ML DISP.SYRIN IV SCH ×3 (06:00→22:23)
[2018-01-29 07:08] LABS: *IMMUNOGLOBULIN G, SERUM 948 mg/dL (700-1600); IMMUNOGLOBULIN A, SERUM 269 mg/dL (61-437); IMMUNOGLOBULIN M, SERUM 43 mg/dL (15-143)
[2018-01-29] MEDS: PROTEIN SUPPLEMENT (PROSTAT) 30 ML LIQUID PO SCH ×3 (08:12→16:51)
[2018-01-29] MEDS: FLUTICASONE/VILANTEROL 1 EACH BLST.W.DEV IH SCH (08:12)
[2018-01-29] MEDS: MULTIVITAMINS,THERAPEUTIC TABLET PO SCH (08:16)
[2018-01-29] MEDS: DOCUSATE SODIUM 100 MG CAPSULE PO SCH ×2 (08:16→16:51)
[2018-01-29] MEDS: ACIDOPHILUS/BULGARICUS CHEW TAB PO SCH ×2 (08:16→16:50)
[2018-01-29] MEDS: FUROSEMIDE 20 MG TABLET PO SCH ×2 (08:17→16:50)
[2018-01-29] MEDS: ASPIRIN 81 MG TAB.CHEW PO SCH (08:17)
[2018-01-29] MEDS: MIRALAX 17 GM POWD.PACK PO SCH (08:17)
[2018-01-29] MEDS: AMIODARONE HCL 200 MG TABLET PO SCH (08:17)
--- NOTE | 2018-01-29 09:00 | NUR ---
DR. ANDUJAR pulmonary services in the unit to examine patient, updated on pt's care plan, and no new orders received.
--- NOTE | 2018-01-29 09:45 | NUR ---
A call from [facility] and as informed she will be here between the hours of 2-4 pm for patient evaluation. She was provided with case management phone #.
--- NOTE | 2018-01-29 20:00 | NUR ---
RECEIVED PT AWAKE, ALERT & ORIENTED X2, FOLLOWS TO COMMAND. ON O2 @ 2L NC W/ O2 SAT OF 97%. PICC LINE INTACT ON KANDIS , PORTS ARE PATENT.AFEBRILE. BP STABLE. REPOSITIONED ON HIS W/ HOB ELEVATED.
[2018-01-29] MEDS: DOXAZOSIN 2 MG TABLET PO SCH (21:11)
[2018-01-29] MEDS: TAMSULOSIN HCL 0.4 MG CAP.SR.24H PO SCH (21:11)
[2018-01-29] MEDS: TRAZODONE 50 MG TABLET PO SCH (21:11)
--- NOTE | 2018-01-29 22:00 | NUR ---
HS CARE DONE. PNEURX DRAIN CATH INTACT & CLAMPED ON LEFT MID CHEST.
[2018-01-30] VITALS (15 sets, daily range): BP systolic 89–154; BP diastolic 44–87
--- NOTE | 2018-01-30 04:00 | NUR ---
AM CARE DONE. ORAL CARE DONE..
--- NOTE | 2018-01-30 06:00 | NUR ---
REPOSITIONED ON HIS SIDE W/ HOB ELEVATED. NOT IN ANY DISTRESS.
[2018-01-30] MEDS: NORMAL SALINE FLUSH 10 ML DISP.SYRIN IV SCH (06:18)
[2018-01-30] MEDS: ASPIRIN 81 MG TAB.CHEW PO SCH (08:12)
[2018-01-30] MEDS: AMIODARONE HCL 200 MG TABLET PO SCH (08:12)
[2018-01-30] MEDS: ACIDOPHILUS/BULGARICUS CHEW TAB PO SCH (08:12)
[2018-01-30] MEDS: FUROSEMIDE 20 MG TABLET PO SCH (08:12)
[2018-01-30] MEDS: DOCUSATE SODIUM 100 MG CAPSULE PO SCH (08:12)
[2018-01-30] MEDS: MULTIVITAMINS,THERAPEUTIC TABLET PO SCH (08:12)
[2018-01-30] MEDS: MIRALAX 17 GM POWD.PACK PO SCH (08:12)
[2018-01-30] MEDS: PROTEIN SUPPLEMENT (PROSTAT) 30 ML LIQUID PO SCH ×2 (08:13→12:24)
[2018-01-30] MEDS: FLUTICASONE/VILANTEROL 1 EACH BLST.W.DEV IH SCH (08:13)
[2018-01-30] MEDS: HYDROCODONE/APAP 10-325 MG TABLET PO PRN (08:17)
--- NOTE | 2018-01-30 08:45 | NUR ---
Pulmonary services Dr. Corrigan in the unit to examine patient; full report given and orders to drain pleurax tube received with orders to be follow Q72 hours.
--- NOTE | 2018-01-30 09:30 | NUR ---
At this time patient chest tube drain as ordered with and output of 40cc thick bloody output obtained.
--- NOTE | 2018-01-30 10:04 | NUR ---
At this time patient with a period of desaturation, low to mid-80's. oxygen increased to 6 liters. Patient denies shortness of breath acknowledging feeling week only. SBP 148/76. Addendum: 01/30/18 at 1029 by IRVING RASHEED RN RT at bedside and patient changed to mask 10liter with improvement in saturation.
--- NOTE | 2018-01-30 10:30 | NUR ---
A call from [facility] she was informed of orders to drain she was also informed that pleurax was just drain and orders are to drain it Q72 hours. 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
--- NOTE | 2018-01-30 11:00 | NUR ---
Patient requesting to be placed back on Nasal canula 6 liters complaining that face mask is too uncomfortable.
--- NOTE | 2018-01-30 14:23 | NUR ---
Patient left unit at this time. DCD instructions provided to pt's son Tori Smallwood, who signs dcd documentation. 3 Pleurex drainage bottles, sterile set sent with patient. Pleurex drain in place c.d.i. covered with dressing. patient saturation at the moment of departure was 94% no respiratory distress noted. New prescription reviewed with both patient and pt's janelle Valle. Addendum: 01/30/18 at 1458 by IRVING RASHEED RN PICC line KANDIS patent Brent sanabria to gravity.
[2018-02-01 09:09] LABS: A/G RATIO 0.6 (0.7-1.7); ALBUMIN 1.8 g/dL (2.9-4.4); ALPHA-1-GLOBULIN 0.2 g/dL (0.0-0.4); BETA GLOBULIN 0.7 g/dL (0.7-1.3); GAMMA GLOBULIN 1.1 g/dL (0.4-1.8); M-SPIKE Not Observed g/dL (Not Observed)
== END 2018-01-30 14:23 | disposition hospice, home (50) | DRG 871 ==
LOC: MED 23:45 → TELE 23:48 → CCU 01-22 03:35
PROVIDERS: ADMIT Internal Medicine; ATTEND Internal Medicine
PROC: 0W9B3ZZ Drainage of Left Pleural Cavity, Percutaneous Approach (ICD-10-PCS; 2018-01-22)
PROC: 0W9B30Z Drainage of Left Pleural Cavity with Drainage Device, Percutaneous Approach (ICD-10-PCS; 2018-01-28)
PROC: 02HV33Z Insertion of Infusion Device into Superior Vena Cava, Percutaneous Approach (ICD-10-PCS; principal; 2018-01-29)
DX: A41.9 Sepsis, unspecified organism (principal); J69.0 Pneumonitis due to inhalation of food and vomit; N17.0 Acute kidney failure with tubular necrosis; J96.21 Acute and chronic respiratory failure with hypoxia; E43 Unspecified severe protein-calorie malnutrition; G92 Toxic encephalopathy; I50.43 Acute on chronic combined systolic (congestive) and diastolic (congestive) heart failure; D68.59 Other primary thrombophilia; E11.22 Type 2 diabetes mellitus with diabetic chronic kidney disease; J44.1 Chronic obstructive pulmonary disease with (acute) exacerbation; I13.0 Hypertensive heart and chronic kidney disease with heart failure and stage 1 through stage 4 chronic kidney disease, or unspecified chronic kidney disease; J98.11 Atelectasis; N13.2 Hydronephrosis with renal and ureteral calculous obstruction; J91.0 Malignant pleural effusion; C80.1 Malignant (primary) neoplasm, unspecified; R65.20 Severe sepsis without septic shock; D63.8 Anemia in other chronic diseases classified elsewhere; K40.90 Unilateral inguinal hernia, without obstruction or gangrene, not specified as recurrent; K57.30 Diverticulosis of large intestine without perforation or abscess without bleeding; I48.0 Paroxysmal atrial fibrillation; Z99.81 Dependence on supplemental oxygen; R62.7 Adult failure to thrive; Z68.22 Body mass index [BMI] 22.0-22.9, adult; I25.10 Atherosclerotic heart disease of native coronary artery without angina pectoris; Z95.1 Presence of aortocoronary bypass graft; Z95.5 Presence of coronary angioplasty implant and graft; Z87.891 Personal history of nicotine dependence; Z87.442 Personal history of urinary calculi; I71.4 Abdominal aortic aneurysm, without rupture; E78.5 Hyperlipidemia, unspecified; G31.84 Mild cognitive impairment of uncertain or unknown etiology; F17.210 Nicotine dependence, cigarettes, uncomplicated; I71.2 Thoracic aortic aneurysm, without rupture; I70.0 Atherosclerosis of aorta; N18.2 Chronic kidney disease, stage 2 (mild); Z87.440 Personal history of urinary (tract) infections; N40.0 Benign prostatic hyperplasia without lower urinary tract symptoms; G89.29 Other chronic pain; Z74.09 Other reduced mobility
CPT/HCPCS: 32555; 36415; 36569; 36600; 70030-TC; 71045; 71250; 71260; 82105; 82378; 82746; 82784; 83550; 83605; 83615; 83735; 83986; 84100; 84155; 84165; 85025; 85610; 85730; 86301; 86334; 87040; 87070; 87075; 87086; 87205; 88342; 94640; A4649; J0690; J1815; J1940; J2185; J3010; J3370; J3475; J3490; J3590; J7030; J7050; P9047; Q9967